=== PATIENT | female | born 1945 | race Caucasian/White ===

== ENCOUNTER 2020-02-24 08:51 | Outpatient (CLI) | payer MEDICARE, OTHER, SELFPAY ==
--- NOTE | ~2020-02-24 | XR_ITS ---
XR chest 2V DATE: 02/24/2020 09:22 INDICATION: Cough TECHNIQUE: PA and lateral views COMPARISON: 12/18/2017 PA and lateral chest FINDINGS: Heart size is at upper limits of normal. There is aortic ectasia and tortuosity. No hilar o r mediastinal enlargement is evident. Bilateral cardiophrenic fat pads. Moderate bilateral hyperinflation. No pulmonary infiltrate or consolidation, pleural effusion or pulm onary vascular congestion or pneumothorax is detected. Diffuse osteopenia. Degenerative changes of the thoracic and lumbar spine, mild scoliosis. There is osteoarthritis at both glenohumeral joints. Surgical clips overlie the medial right lower cervical area. IMPRESSION: Moderate bilateral hyperinflation; no active cardiac pulmonary disease Reviewed, dictated and finalized at location A. IMPRESSION: Moderate bilateral hyperinflation; no active cardiac pulmonary dise ase
== END 2020-02-24 08:52 | disposition home or self-care (01) ==
LOC: ANHIMG 09:05
PROVIDERS: PCP Internal Medicine; Visit Provider Clinical Nurse Specialist
DX: R05 Cough (principal); R91.8 Other nonspecific abnormal finding of lung field
CPT/HCPCS: 71046

== ENCOUNTER 2020-04-13 10:17 | Outpatient (CLI) | payer MEDICARE, OTHER, SELFPAY ==
--- NOTE | ~2020-04-13 | MM_ITS ---
EXAMINATION: MM screening [facility] BI w michele HISTORY: Screening mammogram, history of right breast cancer TECHNIQUE: Craniocaudal and mediolateral oblique 3-D tomosynthesis images were obtained and synthetic 2-D images were generated. CAD analysis was submitted and interpreted. COMPARISON: 03/27/2019, 03/25/2018, 03/20/2017 BREAST PARENCHYMAL COMPOSITION: There are scattered areas of fibroglandular density. FINDINGS: Stable lumpectomy changes are present in the upper outer quadrant of the right breast. Ther e is no evidence of suspicious mass, calcification, or architectural distortion to suggest malignancy in either breast. There has been no suspicious interval change. IMPRESSION: 1. No mammographic evidence of malignancy. 2. Recommend routine screening mammography in one year. BI-RADS Category 2: Benign finding(s). Reviewed, dictated and finalized at location A.
== END 2020-04-13 10:18 | disposition home or self-care (01) ==
PROVIDERS: PCP Internal Medicine; Visit Provider Internal Medicine
DX: Z12.31 Encounter for screening mammogram for malignant neoplasm of breast (principal)
CPT/HCPCS: 77063; 77067

== ENCOUNTER 2020-04-15 13:56 | Outpatient (CLI) | payer MEDICARE, OTHER, SELFPAY ==
--- NOTE | 2020-04-15 15:40 | ECG_ITS ---
Measurements Intervals [place] Rate: 73 P: 33 TX: 171 QRS: 12 QRSD: 94 T: 50 QT: 415 QTc: 460 Interpretive Statements SINUS RHYTHM LOW QRS VOLTAGE IN PRECORDIAL LEADS ANTEROSEPTAL INFARCT, AGE INDETERMINATE BORDERLINE ST ABNORMALITY- HIGH LATERAL LEADS BASELINE ARTIFACT- I, II, III, AVR, AVF, V4 ABNORMAL ECG Electronically Signed On 04-15-2020 18:54:22 CDT by Hima Maldonado D.O.
[2020-04-15 16:09] LABS: Basophils Percent Auto 0.5 % (0.2-1.2); Eosinophils Absolute Auto 0.2 K/mm3 (0-0.3); Hematocrit 37.1 % (37.0-47.0); Hemoglobin 12.4 g/dL (12.0-15.0); Immature Granulocyte Absolute 0.01 K/mm3 (0.00-0.031); Immature Granulocyte Percent A 0.2 % (0-0.5); Lymphocytes Absolute Auto 2.98 K/mm3 (0.9-3.2); Lymphocytes Percent Auto 46.3 % (18.3-44.2); Mean Corpuscular HGB Conc 33.4 g/dl (32-36); Mean Corpuscular Hemoglobin 28.6 pg (26-34); Mean Corpuscular Volume 85.5 fl (80-100); Mean Platelet Volume 9.3 fl (7.4-10.4); Monocytes Absolute Auto 0.4 K/mm3 (0.1-0.6); Monocytes Percent Auto 5.7 % (2.6-8.5); Neutrophils Absolute Auto 2.9 K/mm3 (1.3-6.7); Neutrophils Percent Auto 44.3 % (45.5-73.1); Platelet Count Result 174 k/mm3 (150-375); Red Blood Count 4.34 M/mm3 (4.2-5.4); Red Cell Distribution Width 13.2 % (11.5-14.5); White Blood Count 6.4 K/mm3 (4.5-10.0)
[2020-04-15 16:20] LABS: Albumin Level 4.3 g/dL (3.5-5.1); Estimated Glomerular Filt Rate > 60; Glucose 94 mg/dL (65-105); Hemoglobin A1C 5.3 % (<5.7)
[2020-04-15 16:21] LABS: Urine Cotinine NEGATIVE
== END 2020-04-15 13:57 | disposition home or self-care (01) ==
LOC: ANHSURGERY 13:57
PROVIDERS: PCP Internal Medicine; Visit Provider Orthopaedic Surgery
DX: M16.11 Unilateral primary osteoarthritis, right hip (principal); Z01.812 Encounter for preprocedural laboratory examination; R94.31 Abnormal electrocardiogram [ECG] [EKG]
CPT/HCPCS: 80307; 82040; 82565; 82947; 83036; 85025; 86850; 86900; 86901; 93005

== ENCOUNTER 2020-04-25 01:21 | Outpatient (CLI) | payer MEDICARE, OTHER, SELFPAY ==
[2020-04-25 18:16] LABS: SARS-CoV-2 RNA PCR Negative
== END 2020-04-25 01:22 | disposition home or self-care (01) ==
LOC: ANHCOVIDDT 01:22
PROVIDERS: PCP Internal Medicine; Visit Provider Orthopaedic Surgery
DX: Z01.812 Encounter for preprocedural laboratory examination (principal); Z20.828 Contact with and (suspected) exposure to other viral communicable diseases
CPT/HCPCS: 87635; C9803; U0003

== ENCOUNTER 2020-04-26 09:20 | Outpatient (CLI) | payer MEDICARE, OTHER, SELFPAY ==
--- NOTE | 2020-04-26 | EST_ITS ---
Patient Info Name: Joanne Newman Age: 74 years : 1945 Gender: Female Ht: 69 in Wt: 200 lbs BSA: 2.12 m2 Exam Date: 04/26/2020 10:30 AM Exam Location: [facility] Stress Patient Status: Outpatient Admit Date: 04/26/2020 Staff Ordering Physician: Dwan Omer Attending Provider: Dawn Omer Exercise Technologist: Isabel Pagan RDCS Exam Type: CA stress brittney w NM Study Info Indications Z01.818 - Encounter for other preprocedural examination R94.31 - Abnormal electrocardiogram ECG EKG A regadenoson stress test was performed. Summary 1. 1. Negative lexiscan stress test for ischemic ST changes by ECG criteria. However, at completion of Lexiscan portion of test, patient reports having a cup of coffee this morning. This could cause lexiscan inhibition. 2. 2. Baseline hypertension. 3. 3. Nuclear scan to follow and will be reported separately. Please correlate with it. 4. 4. Patient informed of the above results. Protocol: Lexiscan Stress ECG Details Stage: REST Duration (min): 7 min : 26 sec HR (bpm): 82 SBP (mmHg): 148 DBP (mmHg): 80 Stage: REST Duration (min): 10 min : 52 sec HR (bpm): 84 SBP (mmHg): 148 DBP (mmHg): 80 Stage: STAGE 1 Duration (min): 1 min : 0 sec HR (bpm): 86 SBP (mmHg): 142 DBP (mmHg): 80 Stage: RECOVERY Duration (min): 1 min : 0 sec HR (bpm): 91 SBP (mmHg): 142 DBP (mmHg): 80 Stage: RECOVERY Duration (min): 2 min : 0 sec HR (bpm): 90 SBP (mmHg): 143 DBP (mmHg): 78 Stage: RECOVERY Duration (min): 3 min : 0 sec HR (bpm): 87 SBP (mmHg): 135 DBP (mmHg): 76 Stage: RECOVERY Duration (min): 3 min : 5 sec HR (bpm): 88 SBP (mmHg): 135 DBP (mmHg): 76 Rest HR: 84 bpm Peak HR: 95 bpm Rest Sys BP: 148 mmHg Peak Sys BP: 143 mmHg Max Pred HR: 145 bpm % Max Pred HR: 66 % Target HR: 123 bpm Max RPP: 13,585 bpm*mmHg Termination Reason: Completed protocol Cardiac Symptoms: None Total Time: 1 min : 0 sec Rest Gasca BP: 80 mmHg Peak Gasca BP: 78 mmHg Total Dose: 0.4 mg Resting ECG Sinus rhythm, cannot r/o septal infarct, age indeterminate, borderline ST abnormality in diffuse leads. Stress ECG No ST changes. Arrhythmias None. Report Signatures
--- NOTE | ~2020-04-26 | NM_ITS ---
EXAMINATION: NM brittney stress w perfusion DATE: 04/26/2020 11:35 INDICATION: Abnormal electrocardiogram. TECHNIQUE: Rest images were obtained following intravenous administration of 9.8 mCi Tc99m tetrofosmi n (Myoview). The patient was infused intravenously with Lexiscan (regadenoson). Then, 31.1 mCi Tc99m tetrofosmin (Myoview) was administered intravenously, and stress images were obtained. Data was recon structed into short axis and horizontal and vertical long axis SPECT images. Gated SPECT images were also obtained. COMPARISON: None. FINDINGS: There is no definite reversible or fixed perfusion abnormality to suggest ischemia or infar ction. There is no segmental wall motion abnormality. Left ventricular ejection fraction measures 6 3%. IMPRESSION: 1. No definite ischemia or infarct. The patient had coffee the morning of the procedure, which may davila mper the vasodilator effect of regadenoson potentially yielding false negative results. 2. Normal left ventricular ejection fraction measuring 63%. Reviewed, dictated and finalized at location A. IMPRESSION: 1. No definite ischemia or infarct. The patient had coffee the morning of the p rocedure, which may hamper the vasodilator effect of regadenoson potentially maori elding false negative results. 2. Normal left ventricular ejection fraction measuring 63%.
== END 2020-04-26 09:21 | disposition home or self-care (01) ==
PROVIDERS: PCP Internal Medicine; Visit Provider Clinical Nurse Specialist
DX: R94.31 Abnormal electrocardiogram [ECG] [EKG] (principal)
CPT/HCPCS: 78452; 93017; A9502; J2785

== ENCOUNTER 2020-04-28 15:43 | Observation (INO) | payer MEDICARE, OTHER, SELFPAY ==
[2020-04-15 14:37] VITALS: BMI 30.7
[2020-04-15 14:38] VITALS: BP 124/84; PULSE 75; RESP 18; TEMP 36.8; O2SAT 18
--- NOTE | 2020-04-25 10:38 | PM.IMHP ---
H&P: HPI History of Present Illness Date/Time: 04/25/20 10:38 Chief complaint: OA Right Hip Narrative: Joanne Newman is a 74 year old female Who presents with a chronic ongoing history of right hip and groin pain. This is limiting her daily activities. She can not stand or walk for long periods, she has aching and pain in the groin that radiates into her thigh. Her pain is worse with activity somewhat relieved by rest she does have start-up pain rest pain and night pain however. She notes limitation of motion as well and despite conservative measures including anti-inflammatories and activity modification her symptoms continue. X-rays at this time show advanced primary osteoarthritis in the right hip joint. The patient at this point is discuss further treatment options in detail with Dr. Shaw she would now like to proceed with a right total hip arthroplasty. Review of Systems Review of Systems: All systems reviewed & are unremarkable except as noted in HPI and below PMFSH Past Medical History Medical History Acute hemorrhoid Asthma Breast cancer Cataract Chicken pox Depression Heartburn HTN (hypertension) Hypercholesterolemia Hyperlipemia Liver disease Lumbar radiculopathy Measles Multiple sclerosis Mumps Osteoarthritis Osteoporosis Postmenopausal Rheumatoid arthritis Thyroid disease Tonsillectomy planned 1957 Surgical History Surgical History H/O blepharoplasty 1998 H/O breast biopsy Left 1981, right 1979 H/O hand surgery 1999 H/O lumpectomy H/O thyroidectomy 1982 History of back surgery 05/26/2019 History of bladder surgery 2018 History of facelift 2007 History of knee replacement procedure of left knee 2002, 2012 History of knee replacement procedure of right knee 2009 Hx of cardiac cath Social History Social History Smoking status: Never smoker Alcohol intake: never Substance use: never Spiritual care concerns: No Meds Home Medications and Allergies Home Medications Medication Instructions Recorded Confirmed Type lisinopril 10 mg tablet 10 mg PO DAILY #90 tablet 11/03/19 04/15/20 Rx anastrozole 1 mg tablet 1 mg PO QAM 11/04/19 04/15/20 History cyclosporine 0.05 % eye drops in a 1 drop EACH EYE Q12H 11/04/19 04/15/20 History dropperette docusate sodium 100 mg capsule 100 mg PO DAILY 11/04/19 04/15/20 History fluticasone propionate 50 1 spray NASAL DAILY 11/04/19 04/15/20 History mcg/actuation nasal spray,suspension meloxicam 15 mg tablet 15 mg PO DAILY 11/04/19 04/15/20 History omeprazole 20 mg tablet,delayed 20 mg PO DAILY 11/04/19 04/15/20 History release pilocarpine HCl 5 mg tablet 5 mg PO QID 11/04/19 04/15/20 History triamcinolone acetonide 0.1 % 1 applic TOPICAL BID 11/04/19 04/15/20 History topical ointment venlafaxine 75 mg capsule,extended 75 mg PO DAILY #90 cap 11/19/19 04/15/20 Rx release 24 hr atorvastatin 10 mg tablet 10 mg PO DAILY #90 tablet 12/30/19 04/15/20 Rx abatacept (with maltose) [Orencia 750 mg IV MONTHLY 04/15/20 04/15/20 History (with maltose)] albuterol sulfate [ProAir HFA] 2 puff INHALATION Q4-6H PRN 04/15/20 04/15/20 History fluticasone propion-salmeterol 1 inh INHALATION BID 04/15/20 04/15/20 History [Advair Diskus] levothyroxine [Levoxyl] 112 mcg PO QAM 04/15/20 04/15/20 History mirabegron [Myrbetriq] 25 mg PO DAILY 04/15/20 04/15/20 History oxybutynin chloride 10 mg PO DAILY 04/15/20 04/15/20 History cetirizine 10 mg tablet 10 mg PO DAILY PRN #90 tablet 04/18/20 Rx Allergies Allergy/AdvReac Type Severity Reaction Status Date / Time povidone-iodine Allergy Mild SKIN RASH Verified 04/15/20 14:14 Exam Narrative: Exam Narrative: The patient is a well-developed well-nourished female no acute distress. She is alert and oriented x3. Normal mo
--- NOTE | 2020-04-26 13:59 | WPDANESEPPF ---
Anes - Initial Pre Proc Eval Procedure: Operation Date: 04/27/20 07:30 Proposed Procedures p Right Total Hip Arthroplasty - Blake Shaw MD Date/Time: 04/26/20 13:59 Surgeon: Blake Shaw MD Pre Op Diagnosis: OA Right Hip Patient Data Age: 74 Gender: F Height: 5 ft 9 in Weight: 94.4 kg Last Vital Signs Temp 98.2 F 04/15/20 14:38 Pulse 75 04/15/20 14:38 Resp 18 04/15/20 14:38 BP 124/84 04/15/20 14:38 Pulse Ox 18 L 04/15/20 14:38 Allergies Allergy/AdvReac Type Severity Reaction Status Date / Time povidone-iodine Allergy Mild SKIN RASH Verified 04/15/20 14:14 Home Medications Medication Instructions Recorded Confirmed Type lisinopril 10 mg tablet 10 mg PO DAILY #90 tablet 11/03/19 04/15/20 Rx anastrozole 1 mg tablet 1 mg PO QAM 11/04/19 04/15/20 History cyclosporine 0.05 % eye drops in a 1 drop EACH EYE Q12H 11/04/19 04/15/20 History dropperette docusate sodium 100 mg capsule 100 mg PO DAILY 11/04/19 04/15/20 History fluticasone propionate 50 1 spray NASAL DAILY 11/04/19 04/15/20 History mcg/actuation nasal spray,suspension meloxicam 15 mg tablet 15 mg PO DAILY 11/04/19 04/15/20 History omeprazole 20 mg tablet,delayed 20 mg PO DAILY 11/04/19 04/15/20 History release pilocarpine HCl 5 mg tablet 5 mg PO QID 11/04/19 04/15/20 History triamcinolone acetonide 0.1 % 1 applic TOPICAL BID 11/04/19 04/15/20 History topical ointment venlafaxine 75 mg capsule,extended 75 mg PO DAILY #90 cap 11/19/19 04/15/20 Rx release 24 hr atorvastatin 10 mg tablet 10 mg PO DAILY #90 tablet 12/30/19 04/15/20 Rx abatacept (with maltose) [Orencia 750 mg IV MONTHLY 04/15/20 04/15/20 History (with maltose)] albuterol sulfate [ProAir HFA] 2 puff INHALATION Q4-6H PRN 04/15/20 04/15/20 History fluticasone propion-salmeterol 1 inh INHALATION BID 04/15/20 04/15/20 History [Advair Diskus] levothyroxine [Levoxyl] 112 mcg PO QAM 04/15/20 04/15/20 History mirabegron [Myrbetriq] 25 mg PO DAILY 04/15/20 04/15/20 History oxybutynin chloride 10 mg PO DAILY 04/15/20 04/15/20 History cetirizine 10 mg tablet 10 mg PO DAILY PRN #90 tablet 04/18/20 Rx Patient hx anesthesia problems: none Family hx anesthesia problems: none PMFSH Past Medical History Medical History Acute hemorrhoid Asthma Breast cancer Cataract Chicken pox Depression Heartburn HTN (hypertension) Hypercholesterolemia Hyperlipemia Liver disease Lumbar radiculopathy Measles Multiple sclerosis Mumps Osteoarthritis Osteoporosis Postmenopausal Rheumatoid arthritis Thyroid disease Tonsillectomy planned 1957 Surgical History Surgical History H/O blepharoplasty 1998 H/O breast biopsy Left 1981, right 1979 H/O hand surgery 1999 H/O lumpectomy H/O thyroidectomy 1982 History of back surgery 05/26/2019 History of bladder surgery 2018 History of facelift 2007 History of knee replacement procedure of left knee 2002, 2012 History of knee replacement procedure of right knee 2009 Hx of cardiac cath Social History Social History Smoking status: Never smoker Alcohol intake: never Alcohol use details: SOCIALLY MANY YEARS AGO Substance use: never Living arrangements: with family Spiritual care concerns: No Anes - Eval Final PreProcedure Day of Procedure 04/26/20 13:59 Patient weight: overweight Heart: regular rate and rhythm Lungs: clear to auscultation Airway: Mallampati scale class III Neurological: alert and oriented Last oral intake: >/= 8 hours ASA classification: III Emergent: no Anesthetic plan: proceed Anesthesia type and monitoring: general ETT and standard monitoring Informed Consent: The patient's anesthetic plan and its attendant risks and benefits were discussed with the patient/family/POA. Questions were solicited
[2020-04-27] VITALS (13 sets, daily range): BP systolic 93–151; BP diastolic 52–82; PULSE 64–90; RESP 12–21; TEMP 36–36.8; O2SAT 20–100
[2020-04-27] MEDS: ACETAMINOPHEN 500 MG TABLET 1000 MG PO (06:34)
[2020-04-27] MEDS: LACTATED RINGERS 1,000 ML 30 ML IV CONT ×2 (06:44→09:47)
[2020-04-27] MEDS: KETOROLAC 15 MG/ML VIAL (*BKC) IV PUSH (06:45)
[2020-04-27] MEDS: TRANEXAMIC ACID 1,000MG/ISO100 1,000 MG/100 ML BAG 200 MG IVPB (06:52)
--- NOTE | 2020-04-27 07:08 | WPDHPUPDATE1 ---
History and Physical Update Update Date/Time: 04/27/20 07:08 History and Physical has been reviewed, including an updated exam of the patient. There are NO changes in the patient's condition. Risks, benefits, and alternatives have been discussed and questions answered. Patient agrees to proceed with procedure.
[2020-04-27] MEDS: ceFAZolin 2 GM/D5W 50 ML 2 GM/50 ML BAG IVPB (07:30)
[2020-04-27] MEDS: ceFAZolin SODIUM 1 GM VIAL IV PUSH (09:03)
[2020-04-27] MEDS: TRANEXAMIC ACID 1,000 MG/10 ML AMPUL 1000 MG IV PUSH (09:05)
--- NOTE | 2020-04-27 09:11 | PM.PROC ---
Procedure Note - Detailed Date of procedure: 04/27/20 Pre-op diagnosis: OA Right Hip Post-op diagnosis: same Procedure performed: [Right] total hip arthroplasty Description of procedure: Patient was brought to the operating room and anesthetic was administered. The patient was placed with the [side] up and steriley prepped and draped in the usual manner. Longitudinal incision was done, dissection carried down to the fascia. A Hardinge type approach was used and the femoral head was dislocated anteriorly. Femoral head was removed a finger breath above the lesser trochanter. The acetabulum was serially reamed to accept a [52] component. This was impacted into place and secured with 2 25mm screws. A high wall liner was placed. The femur was reamed and broached to accept a [12] component which was impacted into place. A plus [0] ball and neck were placed and the hip was put through full range of motion. The hip was noted to be stable. The wounds were then closed in a layer fashion using #5 ethibond, 2 vicryl, 2-0 vicryl and radhika. Patient left the operating room in satisfactory condition. Anesthesia: GETA Surgeon: Blake Shaw MD Packager And Strapper: Juan Francisco Cevallos Estimated blood loss (mL): 600 Drains: No Packing: No Pathology: none sent Complications: No immediate complications Condition: stable Disposition: PACU Findings: Arthritis
[2020-04-27 10:06] LABS: Hematocrit 32.7 % (37.0-47.0); Hemoglobin 10.8 g/dL (12.0-15.0)
--- NOTE | 2020-04-27 10:37 | SUR.PHASEI ---
Dr. Elena aware of BP and said to continue monitoring at this time.
--- NOTE | 2020-04-27 12:51 | PM.IMCN ---
Assessment and Plan Assessment and plan (1) History of total right hip arthroplasty: Code(s): Z96.641 - Presence of right artificial hip joint Status: Acute Assessment and Plan: I discussed rehab and the patient stated that she has paperwork for exercises and she believe she is going to do it all on her own med at home. Pain management and DVT prophylaxis per Dr. Shaw. The patient has MORRIS hose and SCDs on. Her dressing to the right hip is dry and intact without any drainage. She has a foam dressing. She is not having any discomfort at this time. (2) Hypothyroidism: Code(s): E03.9 - Hypothyroidism, unspecified Status: Chronic Assessment and Plan: Continue with levothyroxine. (3) HTN (hypertension): Code(s): I10 - Essential (primary) hypertension Status: Chronic Assessment and Plan: Her blood pressure is on the soft side today. Her lisinopril was resumed but please Marcela evaluate tomorrow to see if we can continue with that. (4) Hypercholesterolemia: Code(s): E78.00 - Pure hypercholesterolemia, unspecified Status: Chronic Assessment and Plan: Continue with atorvastatin (5) COPD (chronic obstructive pulmonary disease): Code(s): J44.9 - Chronic obstructive pulmonary disease, unspecified Status: Acute Assessment and Plan: Continue with Advair and albuterol (6) Depression: Code(s): F32.9 - Major depressive disorder, single episode, unspecified Status: Chronic Assessment and Plan: continue with venlafaxine Additional Plan history of breast cancer. The patient had radiation chemotherapy in the past and is now on anastrozole which is currently on hold by orthopedic physician. HPI Data of Consult Consult date: 04/27/20 Requesting Physician: Blake Shaw MD Primary Care Provider: Yonatan Payne DO Consult Narrative Narrative: Joanne Newman is a 74 year old female Houses history of severe osteoarthritis as well as rheumatoid arthritis and osteoporosis. The patient has been dealing with chronic ongoing history of right hip pain and right groin pain she has performed some limited activities as well as exercises and she has tried nonsteroidal anti-inflammatories. She has tried all conservative measures to help control her pain. Sometimes rest does does help but then she has pain at night it sometimes. Despite her conservative measures the patient continued to have intense pain. And limited activity. The patient has had both of her knees replaced in the past. And is not having any problems with her knees at this time. Patient had x-rays performed that was read as advanced primary osteoarthritis in the right hip joint. The patient had preop screening including a Lexiscan which are negative. Patient underwent a right total hip arthroplasty today per Dr. Shaw. According to the operative note the patient lost approximately 600 mL of blood and there was no immediate complications. The date of consult is 04/27/2020. Review of Systems Review of Systems: All systems reviewed & are unremarkable except as noted in HPI and below Constitutional: Constitutional: Reports as per HPI and Reports no additional constitutional complaints Eyes: Eyes: Reports as per HPI and Reports no additional eye complaints ENT: Reports system reviewed and no additional complaints, except as documented and Reports Normal hearing present Cardiovascular: Cardiovascular: Reports no additional cardiovascular complaints Respiratory: Respiratory: Reports no additional respiratory complaints and Reports no additional respiratory complaints Gastrointestinal: Gastrointestinal: Reports as per HPI and Reports no additional gastrointestinal complaints Musculoskeletal: Musculoskeletal: Reports no additional musculoskeletal complaints Integumentary/Breasts: Skin/Breast: Reports system reviewed and no additional complaints, except as
[2020-04-27] MEDS: DOCUSATE SODIUM 100 MG CAPSULE PO ×2 (15:12→17:54)
[2020-04-27] MEDS: RIVAROXABAN 10 MG TABLET PO (17:54)
[2020-04-27] MEDS: cycloSPORINE 0.4 ML OPHTH SOLUTION 1 DROP EACH EYE (20:12)
[2020-04-27] MEDS: FLUTICASONE/SALMETEROL 115-21 MCG INHALER 1 PUFF 2 PUFF INHALATION (20:28)
[2020-04-27] MEDS: ONDANSETRON INJ 4 MG/2 ML VIAL IV PUSH (20:40)
[2020-04-27] MEDS: SODIUM CHLORIDE 0.9% IV 500 ML IV CONT (20:40)
[2020-04-27] MEDS: SODIUM CHLORIDE 0.9% IV 1,000 ML 125 ML IV CONT (22:01)
[2020-04-27] MEDS: HYDROcodone/acetaminophen (*CRX) 7.5-325 MG TABLET 2 TAB PO (22:01)
[2020-04-28] VITALS (9 sets, daily range): BP systolic 114–136; BP diastolic 54–78; PULSE 71–94; RESP 16–21; TEMP 36.2–37; O2SAT 93–100
--- NOTE | ~2020-04-28 | XR_ITS ---
EXAMINATION: XR surgery orthopedic DATE: 04/27/2020 09:15 INDICATION: Intraoperative evaluation during right total hip arthroplasty TECHNIQUE: Frontal view of the right hip was obtained. COMPARISON: None. FINDINGS: Intraoperative image during a right total hip arthroplasty demonstrate placement of an acetabular com ponent affixed with at least a single screw which appears in near anatomic alignment on the single im age provided. Alignment of the arthroplasty appears near-anatomic. Portions of the pelvis are either obscured by a bolster and the iliac crests extending beyond the cephalad margin of the [id number]. No fractures in the visualized bones. IMPRESSION: 1. Expected appearance during right total hip arthroplasty. Reviewed, dictated and finalized at location B.
[2020-04-28] MEDS: SODIUM CHLORIDE 0.9% IV 1,000 ML 125 ML IV CONT (06:37)
[2020-04-28] MEDS: LEVOTHYROXINE SODIUM 112 MCG TABLET PO (06:38)
[2020-04-28 06:40] LABS: Basophils Percent Auto 0.2 % (0.2-1.2); Eosinophils Percent Auto 0.2 % (0-4.4); Hematocrit 27.3 % (37.0-47.0); Immature Granulocyte Absolute 0.06 K/mm3 (0.00-0.031); Immature Granulocyte Percent A 0.5 % (0-0.5); Lymphocytes Absolute Auto 2.56 K/mm3 (0.9-3.2); Lymphocytes Percent Auto 19.6 % (18.3-44.2); Mean Corpuscular Hemoglobin 28.3 pg (26-34); Mean Corpuscular Volume 85.8 fl (80-100); Mean Platelet Volume 9.6 fl (7.4-10.4); Monocytes Absolute Auto 0.7 K/mm3 (0.1-0.6); Monocytes Percent Auto 5.7 % (2.6-8.5); Neutrophils Absolute Auto 9.6 K/mm3 (1.3-6.7); Neutrophils Percent Auto 73.8 % (45.5-73.1); Platelet Count Result 141 k/mm3 (150-375); Red Blood Count 3.18 M/mm3 (4.2-5.4); Red Cell Distribution Width 13.5 % (11.5-14.5)
[2020-04-28 07:01] LABS: Anion Gap 8 mmol/L (8-16); Blood Urea Nitrogen 26 mg/dL (7-17); Calcium 8.2 mg/dL (8.4-10.2); Carbon Dioxide 26 mmol/L (22-30); Chloride 105 mmol/L (98-107); Estimated CRCL calculation 64 ml/min; Estimated Glomerular Filt Rate > 60; Glucose 135 mg/dL (65-105); Potassium 3.9 mmol/L (3.4-5.0); Sodium 139 mmol/L (137-145)
[2020-04-28] MEDS: FLUTICASONE/SALMETEROL 115-21 MCG INHALER 1 PUFF 2 PUFF INHALATION ×2 (07:59→20:28)
[2020-04-28] MEDS: ATORVASTATIN 10 MG TABLET PO (09:52)
[2020-04-28] MEDS: MIRABEGRON 25 MG ER TABLET PO (09:52)
[2020-04-28] MEDS: VENLAFAXINE HCL XR 75 MG CAP.ER.24H PO (09:52)
[2020-04-28] MEDS: DOCUSATE SODIUM 100 MG CAPSULE PO ×2 (09:52→17:01)
[2020-04-28] MEDS: lisinopriL 10 MG TABLET PO (09:53)
[2020-04-28] MEDS: cycloSPORINE 0.4 ML OPHTH SOLUTION 1 DROP EACH EYE ×2 (09:53→21:03)
[2020-04-28] MEDS: FLUTICASONE PROPIONATE 0.05% NA SPR 16 GM BTL (*BKC) 1 SPRAY NASAL (09:53)
--- NOTE | 2020-04-28 10:12 | PCOTNOTE ---
On 04/28/20, the student, Alicia Rojas, provided care and completed [facility] documentation on this patient. I have reviewed the student's documentation and agree with the findings.
--- NOTE | 2020-04-28 11:22 | PM.IMPN ---
Progress Note: A&P Assessment and Plan (1) History of total right hip arthroplasty: Code(s): Z96.641 - Presence of right artificial hip joint Status: Acute Assessment and Plan: -----patient plans to continue physical therapy at home and would like home health to do so. I have asked her to talk to Ortho and care coordination about this. Her pain is well controlled we will continue with ortho is recommendations on that. It looks like she is on Xarelto as DVT prophylaxis per ortho. Medically stable for discharge (2) Hypothyroidism: Code(s): E03.9 - Hypothyroidism, unspecified Status: Chronic Assessment and Plan: -----continue levothyroxine (3) HTN (hypertension): Code(s): I10 - Essential (primary) hypertension Status: Chronic Assessment and Plan: -----last blood pressure 121/78. Continue lisinopril (4) Hypercholesterolemia: Code(s): E78.00 - Pure hypercholesterolemia, unspecified Status: Chronic Assessment and Plan: -----Continue with atorvastatin (5) COPD (chronic obstructive pulmonary disease): Code(s): J44.9 - Chronic obstructive pulmonary disease, unspecified Status: Acute Assessment and Plan: -----Continue with Advair and albuterol (6) Depression: Code(s): F32.9 - Major depressive disorder, single episode, unspecified Status: Chronic Assessment and Plan: ----- continue with venlafaxine Additional Plan history of breast cancer. The patient had radiation chemotherapy in the past and is now on anastrozole which is currently on hold by orthopedic physician. Time Spent With Patient Time with patient: 25 - 35 minutes Subjective Date/time seen: 04/28/20 11:22 Interval history: Pt is a 74-year-old female here for right hip arthroplasty. Patient was seen today and is doing well. She is having some pain at the hip but was able to get up and do therapy today. She is eating and drinking well and has had a BM. Pt denies nausea, vomiting, fevers, chills, constipation, diarrhea, chest pain, cough, sob, or abdominal pain. Review of Systems Review of Systems: All systems reviewed & are unremarkable except as noted in HPI and below Exam Narrative: Exam Narrative: General: Well developed well nourished patient in NAD HEENT: normocephalic Neck: supple Neuro: Alert and oriented x4 CV:RRR with murmur 2/6 systolic in the right intercostal space Resp:CTA Abd: Soft, non distended. No pain to palpation. Positive bowel sounds Extremities: Right hip incision covered with bandages and not removed due to hemostasis. No obvious signs of bleeding or discharge. Objective Data Vital Signs Vital Signs: Vital Signs - 24 hr 04/27/20 11:40 04/27/20 12:40 04/27/20 16:40 Temperature 97.2 F L 97.2 F L 97.8 F Pulse Rate 75 70 87 Respiratory Rate 16 16 16 Blood Pressure 151/77 H 117/57 L 93/70 L Pulse Oximetry 97 98 98 04/27/20 21:58 04/27/20 22:00 04/27/20 22:43 Temperature 98.3 F 97.1 F L Pulse Rate 90 80 73 Respiratory Rate 20 21 H Blood Pressure 133/65 144/69 H Pulse Oximetry 92 100 95 04/28/20 01:58 04/28/20 02:00 04/28/20 06:00 Temperature 97.4 F L 97.2 F L Pulse Rate 71 88 90 Respiratory Rate 21 H 20 Blood Pressure 122/57 L 114/60 Pulse Oximetry 97 100 99 04/28/20 08:01 04/28/20 10:00 Temperature 97.4 F L Pulse Rate 92 88 Respiratory Rate 16 20 Blood Pressure 121/78 Pulse Oximetry 100 Intake/Output Intake/Output: Intake & Output 04/25/20 04/26/20 04/27/20 04/28/20 23:59 23:59 23:59 23:59 Intake Total 1680 1460 Output Total 150 Balance 1680 1310 Meds/Results Medications: Active Medications Generic Name Dose Route Start Last Admin Trade Name Freq PRN Reason Stop Dose Admin Hydrocodone Bitart/Acetaminophen 1 tab 04/27/20 10:49 Hydrocodone/Acetaminophen (*Crx) 5-325 Mg Tablet PO Q3H PRN Pain Rated
[2020-04-28] MEDS: HYDROcodone/acetaminophen (*CRX) 5-325 MG TABLET 1 TAB PO (12:31)
--- NOTE | 2020-04-28 14:58 | PM.PNORT ---
Progress Note: A&P Additional Plan Patient is postop day 1 status post right total hip arthroplasty. Patient is having a little trouble getting going in physical therapy did not make much progress today. Pain medications were adjusted, the patient is encouraged to push herself in physical therapy try to follow instructions per the physical therapist for ambulation. We will try again tomorrow with physical therapy keep her overnight for further observation. A rehab consult will be placed in case she does need further physical therapy and care for her total hip. The patient voiced understanding agrees with above plan. If she is doing very well tomorrow and making good strides in physical therapy we will send her home, will re-evaluate tomorrow. Subjective Subjective Date/Time Seen: 04/28/20 14:58 Patient is status post right total hip arthroplasty postop day 1. The patient is having quite a bit of postop pain particularly when she tries to participate in physical therapy, this is slowing her down also having trouble cooperating and a little resistant to being up ambulating in therapy due to anxiety and discomfort. This was reported by the physical therapist. I saw the patient at bedside today she seems more calm now but again frustrated and not sure she can do issues after doing therapy due to her pain. At rest she seems to be comfortable. She states she has no other complaints now otherwise feels well. Review of Systems Review of Systems: All systems reviewed & are unremarkable except as noted in HPI and below Exam Narrative: Exam Narrative: The patient is alert and oriented x3. Normal mood and affect not anxious at this time. Answers questions appropriately. Vital signs are stable she is afebrile neurovascularly the patient is intact, wound is clean and dry, calves are benign. No significant tenderness or swelling in the mid to distal thigh. Objective Data Vital Signs Vital Signs: Vital Signs - 24 hr 04/27/20 16:40 04/27/20 21:58 04/27/20 22:00 Temperature 36.6 C 36.8 C 36.2 C L Pulse Rate 87 90 80 Respiratory Rate 16 20 21 H Blood Pressure 93/70 L 133/65 144/69 H Pulse Oximetry 98 92 100 04/27/20 22:43 04/28/20 01:58 04/28/20 02:00 Temperature 36.3 C L Pulse Rate 73 71 88 Respiratory Rate 21 H Blood Pressure 122/57 L Pulse Oximetry 95 97 100 04/28/20 06:00 04/28/20 08:01 04/28/20 10:00 Temperature 36.2 C L 36.3 C L Pulse Rate 90 92 88 Respiratory Rate 20 16 20 Blood Pressure 114/60 121/78 Pulse Oximetry 99 100 04/28/20 14:00 Temperature 36.8 C Pulse Rate 89 Respiratory Rate 18 Blood Pressure 114/54 L Pulse Oximetry 93 Intake/Output Intake/Output: Intake & Output 04/25/20 04/26/20 04/27/20 04/28/20 23:59 23:59 23:59 23:59 Intake Total 1680 1460 Output Total 150 Balance 1680 1310 Meds/Results Medications: Active Medications Generic Name Dose Route Start Last Admin Trade Name Freq PRN Reason Stop Dose Admin Hydrocodone Bitart/Acetaminophen 1 tab 04/27/20 10:49 04/28/20 12:31 Hydrocodone/Acetaminophen (*Crx) 5-325 Mg Tablet PO 1 tab Q3H PRN Administration Pain Rated 4-6 Hydrocodone Bitart/Acetaminophen 1 tab 04/28/20 14:01 Hydrocodone/Acetaminophen (*Crx) 7.5-325 Mg Tablet PO Q6H PRN Pain Rated 7-10 Albuterol 2 puff 04/27/20 13:08 Albuterol Sulfate (*Sp) Aerosol 1 Puff INHALATION Q4-6H PRN Dyspnea Alprazolam 0.25 mg 04/28/20 11:53 Alprazolam (*Crx) 0.25 Mg Tablet PO TID PRN Anxiety Atorvastatin Calcium 10 mg 04/28/20 09:00 04/28/20 09:52 Atorvastatin 10 Mg Tablet PO 10 mg DAILY ROCKY Administration Cyclosporine 1 drop 04/27/20 21:00 04/28/20 09:53 Cyclosporine 0.4 Ml Ophth Solution EACH EYE 1 drop Q12HR ROCKY Administration Docusate Sodium 100 mg 04/27/20 10:49 04/28/20 09:52 Docusate Sodium 100 Mg Capsule PO 100 mg BID ROCKY Administration Fluticasone Propionate
[2020-04-28] MEDS: ALPRAZolam (*CRX) 0.25 MG TABLET PO (17:01)
[2020-04-28] MEDS: RIVAROXABAN 10 MG TABLET PO (17:01)
--- NOTE | 2020-04-28 19:14 | PHAR ---
HOME MED VERIFIED PILOCARPINE 5MG TABLETS 1 TABLET QID
[2020-04-29 02:00] VITALS: BP 148/77; PULSE 93; RESP 20; TEMP 37.2; O2SAT 98
[2020-04-29 06:00] VITALS: BP 153/74; PULSE 93; RESP 20; TEMP 36.8; O2SAT 98
[2020-04-29] MEDS: LEVOTHYROXINE SODIUM 112 MCG TABLET PO (06:20)
[2020-04-29] MEDS: FLUTICASONE PROPIONATE 0.05% NA SPR 16 GM BTL (*BKC) 1 SPRAY NASAL (08:45)
[2020-04-29] MEDS: lisinopriL 10 MG TABLET PO (08:46)
[2020-04-29] MEDS: VENLAFAXINE HCL XR 75 MG CAP.ER.24H PO (08:46)
[2020-04-29] MEDS: DOCUSATE SODIUM 100 MG CAPSULE PO (08:46)
[2020-04-29] MEDS: MIRABEGRON 25 MG ER TABLET PO (08:46)
[2020-04-29] MEDS: ATORVASTATIN 10 MG TABLET PO (08:46)
[2020-04-29] MEDS: cycloSPORINE 0.4 ML OPHTH SOLUTION 1 DROP EACH EYE (08:47)
[2020-04-29] MEDS: HYDROcodone/acetaminophen (*CRX) 5-325 MG TABLET 1 TAB PO ×2 (08:48→15:26)
[2020-04-29] MEDS: FLUTICASONE/SALMETEROL 115-21 MCG INHALER 1 PUFF 2 PUFF INHALATION (09:44)
[2020-04-29 09:45] VITALS: O2SAT 98
[2020-04-29 10:00] VITALS: BP 147/62; PULSE 90; RESP 16; TEMP 37; O2SAT 100
--- NOTE | 2020-04-29 11:32 | PM.PNORT ---
Progress Note: A&P Additional Plan Patient is postop day 2 status post right total hip arthroplasty. Patient will be discharged today to the half-way for further care. The patient voiced understanding agrees above plan she will follow up in 2 weeks for postop recheck she is instructed call immediately, See discharge orders. Subjective Subjective Date/Time Seen: 04/29/20 11:32 Patient is postop day 2 status post right total hip arthroplasty. She has been having some pain trouble following commands and therapy going very slowly. She is otherwise doing well without other complaints. Pain appears to be well controlled at rest. She is now deemed stable for discharge to half-way for further care. Review of Systems Review of Systems: All systems reviewed & are unremarkable except as noted in HPI and below Exam Narrative: Exam Narrative: Patient is a well-developed well-nourished female no acute distress pain is well controlled at rest. Vital signs are stable she is afebrile. Neurovascular the patient is intact. Wound dressing is clean and dry. Calves are benign.No significant swelling in the thigh is noted. Patient is going very slowly with physical therapy due to pain control issues while she is up ambulating and also trouble with following commands, the patient has been somewhat anxious in therapy but in bed right now she appears in no acute distress otherwise pleasant. Objective Data Vital Signs Vital Signs: Vital Signs - 24 hr 04/28/20 14:00 04/28/20 18:00 04/28/20 20:00 Temperature 36.8 C 36.6 C Pulse Rate 89 80 94 Respiratory Rate 18 18 18 Blood Pressure 114/54 L 125/63 Pulse Oximetry 93 100 04/28/20 22:00 04/29/20 02:00 04/29/20 06:00 Temperature 37.0 C 37.2 C 36.8 C Pulse Rate 90 93 93 Respiratory Rate 20 20 20 Blood Pressure 136/59 L 148/77 H 153/74 H Pulse Oximetry 99 98 98 04/29/20 09:45 04/29/20 10:00 Temperature 37.0 C Pulse Rate 90 Respiratory Rate 16 Blood Pressure 147/62 H Pulse Oximetry 98 100 Intake/Output Intake/Output: Intake & Output 04/26/20 04/27/20 04/28/20 04/29/20 23:59 23:59 23:59 23:59 Intake Total 1680 1780 640 Output Total 150 Balance 1680 1630 640 Meds/Results Medications: Active Medications Generic Name Dose Route Start Last Admin Trade Name Freq PRN Reason Stop Dose Admin Hydrocodone Bitart/Acetaminophen 1 tab 04/27/20 10:49 04/29/20 08:48 Hydrocodone/Acetaminophen (*Crx) 5-325 Mg Tablet PO 1 tab Q3H PRN Administration Pain Rated 4-6 Hydrocodone Bitart/Acetaminophen 1 tab 04/29/20 08:07 Hydrocodone/Acetaminophen (*Crx) 7.5-325 Mg Tablet PO Q6H PRN Pain Rated 7-10 Albuterol 2 puff 04/27/20 13:08 Albuterol Sulfate (*Sp) Aerosol 1 Puff INHALATION Q4-6H PRN Dyspnea Alprazolam 0.25 mg 04/28/20 11:53 04/28/20 17:01 Alprazolam (*Crx) 0.25 Mg Tablet PO 0.25 mg TID PRN Administration Anxiety Atorvastatin Calcium 10 mg 04/28/20 09:00 04/29/20 08:46 Atorvastatin 10 Mg Tablet PO 10 mg DAILY ROCKY Administration Cyclosporine 1 drop 04/27/20 21:00 04/29/20 08:47 Cyclosporine 0.4 Ml Ophth Solution EACH EYE 1 drop Q12HR ROCKY Administration Docusate Sodium 100 mg 04/27/20 10:49 04/29/20 08:46 Docusate Sodium 100 Mg Capsule PO 100 mg BID ROCKY Administration Fluticasone Propionate 1 spray 04/28/20 09:00 04/29/20 08:45 Fluticasone Propionate 0.05% Na Spr 16 Gm Btl (*Bkc) NASAL 1 spray DAILY ROCKY Administration Levothyroxine Sodium 112 mcg 04/28/20 06:30 04/29/20 06:20 Levothyroxine Sodium 112 Mcg Tablet PO 112 mcg DAILY@0630 ROCKY Administration Lisinopril 10 mg 04/28/20 09:00 04/29/20 08:46 Lisinopril 10 Mg Tablet PO 10 mg DAILY ROCKY Administration Loratadine 10 mg 04/27/20 13:17 Loratadine 10 Mg Tablet PO DAILY PRN allergy symptoms Magnesium Hydroxide 30 ml 04/27/20 10:49 Magnesium Hydroxide Susp 30
--- NOTE | 2020-04-29 11:54 | PM.DS ---
DS: Admitting Diagnosis Admitting Diagnosis Admitting Diagnosis: Admitting diagnosis : severe OA Right Hip discharge diagnosis severe OA right hip status post total hip arthroplasty. DS: Summary Time Spent with Patient Time attestation: Total time spent providing and/or coordinating discharge services: Exam Narrative: Exam Narrative: Patient is well-developed well-nourished female no acute distress postop day 2. She was having some pain control issues was going slowly in therapy was a bit anxious at times during therapy but at rest pain is fairly well controlled and she is otherwise stable without distress. Vital signs are stable. She is afebrile. Neurovascular she is intact. Wound is clean and dry. She has no significant swelling in the thigh. Calves are benign. DS: Data Data Completed and Pending Labs on day of discharge: Labs from last 24 hours 04/29/20 05:10 SARS-CoV-2 RNA (RT-PCR) Pending Discharge Plan Discharge Attending physician on discharge: Blake Shaw Consulting providers: Joselyn Camara Discharging Clinician: Juan Francisco Cevallos Anticipated Discharge Date/Time: 04/29/20 14:38 Patient Disposition: SNF Activity: no shower and follow weight bearing status Diet: as tolerated and regular Wound Care Instructions: keep dressing dry and change dressing daily Discharge Instructions: -You have been prescribed narcotic pain medication. This pain medication can make you constipated. Utilize [id number] medications to relieve your constipation symptoms. Take only as directed as these medications can be addictive. Do not drive on these medications. -worrisome signs and symptoms to come to the emergency room for: Chest pain, shortness of breath, progressive significant weakness, or any other worrisome symptom patient is discharged to half-way today general diet partial to toe-touch weight-bearing right lower extremity with a walker at all times. She will have outpatient physical therapy at the half-way with ambulation for total hip protocol, follow total hip instructions and precautions. Patient is in stable condition. Patient will follow up at 2 weeks postop for staple removal and wound recheck unless she is still admitted in the half-way that she can have her radhika removed there. The half-way was instructed to call us if this is the case. Patient will continue Xarelto 10 mg daily for a total postop course of 3 weeks, when this is completed then she will start aspirin 325 mg b.i.d. times 1 month. Patient will resume her home medications as previously prescribed. Patient will also be discharged with [place] 5 mg/ 325 mg p.o. Q 3 hours p.r.n. pain. The patient was instructed to call the office immediately at [phone] for any problems questions or concerns, the half-way is also instructed to call us if there is any problems or questions. Patient voiced understanding agrees above plan. Patient Instructions: Rivaroxaban (By mouth), Pain Management (DC), Joint Replacement Surgery (GEN), Total Hip Replacement (DC) Stand Alone Forms: General Discharge Information Follow-up/Referrals: Blake Shaw MD [Physician] - ( Follow-up [address] Shaw for staple removal and wound recheck, call [phone] for any problems difficulties or questions.) Discharge Medications: New hydrocodone-acetaminophen 5-325 mg Tablet 1 tab PO Q3H PRN (Reason: Pain Rated 4-6) Qty: 40 RF: 0 Xarelto 10 mg Tablet 10 mg PO DAILY@1700 Qty: 20 RF: 0 Continued anastrozole 1 mg tablet 1 mg PO QAM RF: 0 pilocarpine HCl 5 mg tablet 5 mg PO QID RF: 0 fluticasone propionate 50 mcg/actuation spray,suspension 1 spray NASAL DAILY RF: 0 Restasis 0.05 % dropperette 1 drop EACH EYE Q12H RF: 0 omeprazole 20 mg tablet,delayed release (DR/EC) 20 mg PO DAILY RF: 0 docusate sodium 100 mg capsule 100 mg PO DAILY RF: 0 tria
[2020-04-29 14:00] VITALS: BP 119/54; PULSE 84; RESP 16; TEMP 36.9; O2SAT 98
[2020-04-29 14:12] LABS: SARS-CoV-2 RNA PCR Negative
== END 2020-04-29 16:30 ==
LOC: ANHSURGERY 15:46 → ANH2MED 15:46
PROVIDERS: Nurse Practitioner; Admitting Provider Orthopaedic Surgery; PCP Internal Medicine; Visit Provider Orthopaedic Surgery
PROC: (CPT 27130; principal; 2020-04-27 07:30)
DX: M16.11 Unilateral primary osteoarthritis, right hip (principal); I10 Essential (primary) hypertension; E78.5 Hyperlipidemia, unspecified; M06.9 Rheumatoid arthritis, unspecified; M81.0 Age-related osteoporosis without current pathological fracture; J44.9 Chronic obstructive pulmonary disease, unspecified; E78.00 Pure hypercholesterolemia, unspecified; F32.9 Major depressive disorder, single episode, unspecified; G35 Multiple sclerosis; E03.9 Hypothyroidism, unspecified; Z85.3 Personal history of malignant neoplasm of breast; Z79.811 Long term (current) use of aromatase inhibitors; Z92.3 Personal history of irradiation; Z92.21 Personal history of antineoplastic chemotherapy; Z20.828 Contact with and (suspected) exposure to other viral communicable diseases
CPT/HCPCS: 27130; 36415; 80048; 85014; 85018; 85025; 87635; 94640; 97110; 97161; 97165; 97530; A9270; C1776; C9803; G0378; J0171; J0330; J0690; J1100; J1885; J2250; J2270; J2370; J2405; J2704; J2710; J2795; J3010; J3370; J7030; J7040; J7120; U0003

== ENCOUNTER 2020-10-14 09:43 | Outpatient (CLI) | payer MEDICARE, OTHER, SELFPAY ==
--- NOTE | ~2020-10-14 | XR_ITS ---
EXAMINATION: XR hand BI arthritis min 3V EXAM DATE: 10/14/2020 10:23 INDICATION: M19.90 - Unspecified osteoarthritis, unspecified site. TECHNIQUE: Right hand frontal, lateral and oblique projections obtained and reviewed. Left hand fron seng, lateral and oblique projections obtained and reviewed. Catchers projection of both hands. There is no prior study for comparison. FINDINGS: Right hand: There is mild polyarticular interphalangeal, mild to moderate 1st carpometacarpal primary osteoarthritis. There are no bony erosions identified. There are no acute fractures identified. Left hand: There is mild polyarticular interphalangeal, moderate 1st carpometacarpal primary osteoart hritis. There are no bony erosions identified. There are no acute fractures identified. IMPRESSION: Bilateral polyarticular osteoarthritis, 1st carpometacarpal joint most affected. Reviewed, dictated and finalized at location A. IMPRESSION: Bilateral polyarticular osteoarthritis, 1st carpometacarpal joint m ost affected.
--- NOTE | ~2020-10-14 | XR_ITS ---
EXAMINATION: XR foot LT standing 2V, XR foot RT standing 2V DATE: 10/14/2020 10:23 INDICATION: Rheumatoid arthritis TECHNIQUE: 1. Standing dorsal plantar and lateral views of the left foot were obtained. 2. Standing dorsal plantar and lateral views of the right foot were obtained. COMPARISON: None. FINDINGS: Normal alignment at both feet. No fractures. Mild polyarticular osteoarthritis characterized by nonun iform joint space narrowing and/or tiny marginal osteophytes at the bilateral calcaneocuboid, talonav icular and multiple bilateral tarsometatarsal, metatarsophalangeal and interphalangeal joints. No ero sions to suggest an inflammatory arthritis. Small enthesopathic ossification at the calcaneal inserti on of the distal left Achilles tendon. No ankle joint effusions. IMPRESSION: 1. Mild polyarticular osteoarthritis throughout both feet. No erosions to suggest an inflammatory art hritis. Reviewed, dictated and finalized at location A. IMPRESSION: 1. Mild polyarticular osteoarthritis throughout both feet. No erosions to sugge st an inflammatory arthritis.
[2020-10-14 10:56] LABS: Add Urine Microscopic? YES; Appearance Urine Cloudy (Clear); Bilirubin Urine Negative (Negative); Blood Urine 2+ (Negative); Color Urine Yellow (Yellow); Glucose Urine UA Negative (Negative); Hematocrit 36.1 % (37.0-47.0); Hemoglobin 11.8 g/dL (12.0-15.0); Ketones Urine Negative (Negative); Leukocyte Esterase Ur 2+ LEU/UL (Negative); Mean Corpuscular HGB Conc 32.7 g/dl (32-36); Mean Corpuscular Hemoglobin 27.5 pg (26-34); Mean Corpuscular Volume 84.1 fl (80-100); Mean Platelet Volume 8.5 fl (7.4-10.4); Nitrate Urine Negative (Negative); Platelet Count Result 206 k/mm3 (150-375); Protein Urine 2+ mg/dL (Negative); RBC Urine >75 /hpf (0-2); Red Blood Count 4.29 M/mm3 (4.2-5.4); Red Cell Distribution Width 16.4 % (11.5-14.5); Specific Grav Ur 1.017 (1.001-1.035); Squamous Epithelial Cell Urine Rare /hpf (Few); Urobilinogen Urine Negative mg/dL (<2.0); WBC Urine >75 /hpf; White Blood Count 7.2 K/mm3 (4.5-10.0)
[2020-10-14 11:04] LABS: Alanine Aminotransferase 19 U/L (4-35); Albumin Level 4.5 g/dL (3.5-5.1); Alkaline Phosphatase 66 U/L (38-126); Anion Gap 8 mmol/L (8-16); Aspartate Amino Transferase 35 U/L (14-36); Bilirubin,Total 0.3 mg/dL (0.2-1.3); Blood Urea Nitrogen 15 mg/dL (7-17); CRP < 0.5 mg/dL (<1.0); Calcium 9.5 mg/dL (8.4-10.2); Carbon Dioxide 28 mmol/L (22-30); Chloride 98 mmol/L (98-107); Estimated Glomerular Filt Rate 54; Glucose 109 mg/dL (65-105); Potassium 4.4 mmol/L (3.4-5.0); Sodium 134 mmol/L (137-145)
[2020-10-14 12:12] LABS: Hepatitis B Surface Antigen Negative (Negative)
[2020-10-14 12:30] LABS: Hepatitis B Surface Anti Res Negative; Hepatitis C Virus Antibody Negative (Negative)
[2020-10-14 13:56] LABS: Erythrocyte Sedimentation Rate 26 mm/hr (0-20)
== END 2020-10-14 09:44 | disposition home or self-care (01) ==
LOC: ANHIMG 09:54
PROVIDERS: PCP Internal Medicine; Visit Provider Internal Medicine
DX: M05.79 Rheumatoid arthritis with rheumatoid factor of multiple sites without organ or systems involvement (principal); M19.90 Unspecified osteoarthritis, unspecified site; M06.9 Rheumatoid arthritis, unspecified; M19.041 Primary osteoarthritis, right hand; M19.042 Primary osteoarthritis, left hand; M19.071 Primary osteoarthritis, right ankle and foot; M19.072 Primary osteoarthritis, left ankle and foot
CPT/HCPCS: 36415; 73130; 73620; 80053; 81001; 82728; 83540; 83550; 85027; 85652; 86140; 86706; 86803; 87077; 87086; 87088; 87186; 87340

== ENCOUNTER 2020-10-14 10:00 | Outpatient (CLI) | payer MEDICARE, OTHER, SELFPAY ==
[2020-10-14 11:38] LABS: Iron 76 ug/dL (37-170)
[2020-10-14 11:47] LABS: Percent Iron Saturation 21 % (20-50)
== END 2020-10-14 10:01 | disposition home or self-care (01) ==
LOC: ANHLAB 10:04
PROVIDERS: PCP Internal Medicine; Visit Provider Internal Medicine
DX: Z86.2 Personal history of diseases of the blood and blood-forming organs and certain disorders involving the immune mechanism (principal); Z85.3 Personal history of malignant neoplasm of breast; Z79.811 Long term (current) use of aromatase inhibitors
CPT/HCPCS: 36415; 82728; 83540; 83550

== ENCOUNTER 2020-10-18 09:48 | Outpatient (CLI) | payer MEDICARE, OTHER, SELFPAY ==
[2020-10-21 12:49] LABS: NIL 0.03 IU/mL; Quantiferon TB Plus, 1T NEGATIVE (NEGATIVE); TB1-NIL 0.03 IU/mL; TB2-NIL 0.04 IU/mL
== END 2020-10-18 09:49 | disposition home or self-care (01) ==
PROVIDERS: PCP Internal Medicine; Visit Provider Internal Medicine
DX: M05.79 Rheumatoid arthritis with rheumatoid factor of multiple sites without organ or systems involvement (principal)
CPT/HCPCS: 36415; 86480

== ENCOUNTER 2020-11-09 13:27 | Outpatient (CLI) | payer MEDICARE, OTHER, SELFPAY ==
--- NOTE | ~2020-11-09 | DEXA_ITS ---
Bone Density Report Name: Joanne Newman Age: 75 Sex: Female Ethnicity: White Date of : 1945 Indication: postmenopausal; height loss; cancer; asthma or emphysema; rheumatoid arthritis; Referring Provider: Joe Azar Study: Bone densitometry was performed. Exam Date: November 09, 2020 Accession number: [id number] Bone Density: Region BMD T-score Z-score Classification Femoral Neck (Left) 0.744 -0.9 1.2 Normal Total Hip (Left) 0.885 -0.5 1.4 Normal World Health Organization criteria for BMD impression classify patients as: Normal (T-score at or above -1.0), Osteopenia (T-score between -1.0 and -2.5), or Osteoporosis (T-score at or below -2.5). 10-year Fracture Risk: FRAX not reported because: All T-scores for Spine Total, Hip Total, Femoral Neck at or above -1.0 Clinical Information Provided by Patient: Has rheumatoid arthritis Has used the following medications: Vitamin D, Calcium Has the following medical conditions: Asthma or Emphysema, Cancer Patient maximum height was 72 Menopause Age: 49 No regular weight bearing exercise Drinks caffeinated beverages Onset of menses at age 11 Number of children 0 Impression: The patient has normal bone mass. Discussion: BONE DENSITY IS ABOVE THE MINIMUM DESIRABLE LEVEL AT ALL SKELETAL SITES TESTED. This patient?s bone mineral density is above the minimum desirable level (T-score -1.0 or better) at all sites measured. The patient should follow a healthful lifestyle (good nutrition with adequate calcium and vitamin D, and appropriate weight-bearing exercise). Follow-Up: Consider repeating this study in 5 years or sooner if there is some new clinical indication. Reported by: JUAN F on 11/09/2020 1:48:00 PM. Reviewed, dictated and finalized at location Jose ROMERO
== END 2020-11-09 13:28 | disposition home or self-care (01) ==
LOC: ANHIMG 13:28
PROVIDERS: PCP Internal Medicine; Visit Provider Internal Medicine
DX: M81.0 Age-related osteoporosis without current pathological fracture (principal)
CPT/HCPCS: 77080

== ENCOUNTER 2020-12-06 10:48 | Outpatient (CLI) | payer MEDICARE, OTHER, SELFPAY ==
[2020-12-06 11:22] LABS: Basophils Percent Auto 0.3 % (0.2-1.2); Eosinophils Absolute Auto 0.2 K/mm3 (0-0.3); Hematocrit 36.4 % (37.0-47.0); Hemoglobin 11.9 g/dL (12.0-15.0); Immature Granulocyte Absolute 0.02 K/mm3 (0.00-0.031); Immature Granulocyte Percent A 0.3 % (0-0.5); Immature Platelet Fraction Pct 2.8 % (0.9-11.2); Lymphocytes Absolute Auto 2.22 K/mm3 (0.9-3.2); Mean Corpuscular HGB Conc 32.7 g/dl (32-36); Mean Corpuscular Hemoglobin 28.3 pg (26-34); Mean Corpuscular Volume 86.7 fl (80-100); Mean Platelet Volume 9.2 fl (7.4-10.4); Monocytes Absolute Auto 0.4 K/mm3 (0.1-0.6); Monocytes Percent Auto 6.9 % (2.6-8.5); Neutrophils Absolute Auto 3.5 K/mm3 (1.3-6.7); Neutrophils Percent Auto 54.5 % (45.5-73.1); Platelet Count Result 202 k/mm3 (150-375); Red Cell Distribution Width 13.7 % (11.5-14.5); White Blood Count 6.4 K/mm3 (4.5-10.0)
[2020-12-06 11:31] LABS: Alanine Aminotransferase 22 U/L (4-35); Albumin Level 4.2 g/dL (3.5-5.1); Alkaline Phosphatase 67 U/L (38-126); Anion Gap 10 mmol/L (8-16); Aspartate Amino Transferase 43 U/L (14-36); Bilirubin,Total 0.2 mg/dL (0.2-1.3); Blood Urea Nitrogen 14 mg/dL (7-17); Carbon Dioxide 23 mmol/L (22-30); Chloride 105 mmol/L (98-107); Cholesterol 161 mg/dL (0-200); Estimated Glomerular Filt Rate 54; Glucose 103 mg/dL (65-105); HDL Direct 53 mg/dL; Potassium 4.7 mmol/L (3.4-5.0); Sodium 138 mmol/L (137-145); Triglycerides 145 mg/dL (<150)
[2020-12-06 11:42] LABS: LDL Cholesterol Direct 72 mg/dL
[2020-12-06 12:01] LABS: Thyroid Stimulating Hormone 0.841 uIU/mL (0.465-4.680)
[2020-12-06 12:38] LABS: Vitamin D 25 Hydroxy 42.9 ng/mL
== END 2020-12-06 10:49 | disposition home or self-care (01) ==
LOC: ANHLAB 11:03
PROVIDERS: PCP Internal Medicine; Visit Provider Clinical Nurse Specialist
DX: E78.5 Hyperlipidemia, unspecified (principal); E87.1 Hypo-osmolality and hyponatremia; M15.9 Polyosteoarthritis, unspecified; E03.9 Hypothyroidism, unspecified
CPT/HCPCS: 36415; 80053; 80061; 82306; 84443; 85025; 85055

== ENCOUNTER 2021-02-06 13:25 | Outpatient (CLI) | payer MEDICARE, OTHER, SELFPAY ==
[2021-02-06 13:47] LABS: Hematocrit 36.9 % (37.0-47.0); Hemoglobin 12.2 g/dL (12.0-15.0)
== END 2021-02-06 13:26 | disposition home or self-care (01) ==
LOC: ANHSURGERY 13:29
PROVIDERS: Anesthesiology; PCP Internal Medicine; Visit Provider Urology
DX: N32.9 Bladder disorder, unspecified (principal); D64.9 Anemia, unspecified; Z01.818 Encounter for other preprocedural examination
CPT/HCPCS: 36415; 85014; 85018; 87077; 87086; 87186

== ENCOUNTER 2021-02-13 01:15 | Day surgery (SDC) | payer MEDICARE, OTHER, SELFPAY ==
[2021-02-03 13:05] VITALS: BMI 29.6
--- NOTE | 2021-02-13 09:05 | WPDANESEPPF ---
Anes - Initial Pre Proc Eval Procedure: Operation Date: 02/13/21 10:30 Proposed Procedures p Cystoscopy, Bladder Biopsy - Zev Samayoa MD Date/Time: 02/13/21 09:05 Surgeon: Zev Samayoa MD Pre Op Diagnosis: Bladder Disorder Patient Data Age: 75 Gender: F Height: 1.75 m Weight: 91 kg Allergies Allergy/AdvReac Type Severity Reaction Status Date / Time povidone-iodine Allergy Mild SKIN RASH Verified 02/03/21 12:51 Home Medications Medication Instructions Recorded Confirmed Type cyclosporine 0.05 % eye drops in a 1 drop EACH EYE Q12H 11/04/19 02/03/21 History dropperette fluticasone propionate 50 1 spray NASAL BID 11/04/19 02/03/21 History mcg/actuation nasal spray,suspension Myrbetriq 25 mg PO QAM 04/15/20 02/03/21 History oxybutynin chloride 10 mg PO QAM 04/15/20 02/03/21 History anastrozole 1 mg tablet 1 mg PO QAM #90 tablet 06/13/20 02/03/21 Rx fluticasone 250 mcg-salmeterol 50 1 inh INHALATION BID #60 ea 06/13/20 02/03/21 Rx mcg/dose blistr powdr for inhalation levothyroxine 112 mcg tablet 112 mcg PO QAM #90 tablet 08/24/20 02/03/21 Rx cetirizine 10 mg tablet 10 mg PO DAILY PRN #90 tablet 09/22/20 02/03/21 Rx hydroxychloroquine 200 mg tablet 200 mg PO DAILY #90 tablet 10/21/20 02/03/21 Rx atorvastatin 10 mg tablet 10 mg PO DAILY #90 tablet 12/05/20 02/03/21 Rx calcium carbonate 650 mg calcium 650 mg PO DAILY 12/15/20 02/03/21 History (1,625 mg) tablet multivitamin 1 tablet PO DAILY 12/15/20 02/03/21 History pilocarpine HCl 5 mg tablet 5 mg PO QID #90 tablet 12/22/20 02/03/21 Rx acetaminophen 1,300 mg PO BID 02/03/21 02/03/21 History albuterol sulfate [ProAir HFA] 2 puff INHALATION BID 02/03/21 02/03/21 History hydrocodone-acetaminophen 1 tab PO HS 02/03/21 02/03/21 History meloxicam 15 mg PO HS PRN 02/03/21 02/03/21 History omeprazole 20 mg PO QAM 02/03/21 02/03/21 History venlafaxine [Effexor XR] 75 mg PO QAM 02/03/21 02/03/21 History lisinopril 10 mg tablet 10 mg PO QAM #30 tablet 02/13/21 Rx Patient hx anesthesia problems: none Family hx anesthesia problems: none PMFSH Past Medical History Medical History Acute hemorrhoid Age-related osteoporosis without current pathological fracture Asthma Breast cancer Status post lumpectomy and radiation and chemotherapy. Now on oral medication. Cataract Chicken pox COPD (chronic obstructive pulmonary disease) Counseling on health promotion and disease prevention Depression Generalized osteoarthritis of multiple sites Heartburn HTN (hypertension) Hypercholesterolemia Hyperlipemia Hypothyroidism Liver disease Lumbar radiculopathy Measles Multiple sclerosis Mumps Osteoarthritis Osteoporosis Overactive bladder Postmenopausal Rheumatoid arthritis with rheumatoid factor of multiple sites without organ or systems involvement (~2016) Thyroid disease Tonsillectomy planned 1957 Surgical History Surgical History H/O bilateral cataract extraction H/O blepharoplasty 1998 H/O breast biopsy Left 1981, right 1979 H/O hand surgery 1999 H/O lumpectomy H/O thyroidectomy 1982 History of back surgery 05/26/2019 History of bladder surgery 2018 History of facelift 2007 History of knee replacement procedure of left knee 2002, 2012 History of knee replacement procedure of right knee 2009 History of tonsillectomy History of total right hip arthroplasty Dr. Shaw 04/27/2020 Hx of cardiac cath Family History Family History Mother Hypertension Father Hypertension Social History Social History Smoking status: Never smoker Alcohol intake: former Alcohol use details: SOCIAL DRINKER Substance use: never Living arrangements: with family Additional living arrangements comments: [facility]
[2021-02-13 09:15] VITALS: BP 126/66; PULSE 79; RESP 16; TEMP 37.4; O2SAT 99
[2021-02-13] MEDS: LACTATED RINGERS 1,000 ML 30 ML IV CONT (09:20)
--- NOTE | 2021-02-13 10:14 | PM.IMHP ---
H&P: HPI History of Present Illness Date/Time: 02/13/21 10:14 This is a 75-year-old female the bladder lesion noted on a previous cystoscopy. She is here today for biopsy Chief Complaint: bladder lesion Review of Systems Review of Systems: All systems reviewed & are unremarkable except as noted in HPI and below [facility] Past Medical History Medical History Acute hemorrhoid Age-related osteoporosis without current pathological fracture Asthma Breast cancer Status post lumpectomy and radiation and chemotherapy. Now on oral medication. Cataract Chicken pox COPD (chronic obstructive pulmonary disease) Counseling on health promotion and disease prevention Depression Generalized osteoarthritis of multiple sites Heartburn HTN (hypertension) Hypercholesterolemia Hyperlipemia Hypothyroidism Liver disease Lumbar radiculopathy Measles Multiple sclerosis Mumps Osteoarthritis Osteoporosis Overactive bladder Postmenopausal Rheumatoid arthritis with rheumatoid factor of multiple sites without organ or systems involvement (~2016) Thyroid disease Tonsillectomy planned 1957 Surgical History Surgical History H/O bilateral cataract extraction H/O blepharoplasty 1998 H/O breast biopsy Left 1981, right 1979 H/O hand surgery 1999 H/O lumpectomy H/O thyroidectomy 1982 History of back surgery 05/26/2019 History of bladder surgery 2018 History of facelift 2007 History of knee replacement procedure of left knee 2002, 2013 History of knee replacement procedure of right knee 2009 History of tonsillectomy History of total right hip arthroplasty Dr. Shaw 04/27/2020 Hx of cardiac cath Family History Family History Mother Hypertension Father Hypertension Social History Social History Smoking status: Never smoker Alcohol intake: former Alcohol use details: SOCIAL DRINKER Substance use: never Living arrangements: with family Additional living arrangements comments: [facility] Gender identity (if verbalized by the patient): Female Spiritual care concerns: No Meds Home Medications and Allergies Home Medications Medication Instructions Recorded Confirmed Type cyclosporine 0.05 % eye drops in a 1 drop EACH EYE Q12H 11/04/19 02/13/21 History dropperette fluticasone propionate 50 1 spray NASAL BID 11/04/19 02/03/21 History mcg/actuation nasal spray,suspension Myrbetriq 25 mg PO QAM 04/15/20 02/03/21 History oxybutynin chloride 10 mg PO QAM 04/15/20 02/03/21 History anastrozole 1 mg tablet 1 mg PO QAM #90 tablet 06/13/20 02/03/21 Rx fluticasone 250 mcg-salmeterol 50 1 inh INHALATION BID #60 ea 06/13/20 02/03/21 Rx mcg/dose blistr powdr for inhalation levothyroxine 112 mcg tablet 112 mcg PO QAM #90 tablet 08/24/20 02/13/21 Rx cetirizine 10 mg tablet 10 mg PO DAILY PRN #90 tablet 09/22/20 02/03/21 Rx hydroxychloroquine 200 mg tablet 200 mg PO DAILY #90 tablet 10/21/20 02/03/21 Rx atorvastatin 10 mg tablet 10 mg PO DAILY #90 tablet 12/05/20 02/03/21 Rx calcium carbonate 650 mg calcium 650 mg PO DAILY 12/15/20 02/03/21 History (1,625 mg) tablet multivitamin 1 tablet PO DAILY 12/15/20 02/13/21 History pilocarpine HCl 5 mg tablet 5 mg PO QID #90 tablet 12/22/20 02/03/21 Rx acetaminophen 1,300 mg PO BID 02/03/21 02/03/21 History albuterol sulfate [ProAir HFA] 2 puff INHALATION BID 02/03/21 02/13/21 History hydrocodone-acetaminophen 1 tab PO HS 02/03/21 02/03/21 History meloxicam 15 mg PO HS PRN 02/03/21 02/03/21 History omeprazole 20 mg PO QAM 02/03/21 02/03/21 History venlafaxine [Effexor XR] 75 mg PO QAM 02/03/21 02/13/21 History lisinopril 10 mg tablet 10 mg PO QAM #30 tablet 02/13/21 Rx Allergies Allergy/AdvReac Type Severity Reaction Status Date / Time
--- NOTE | 2021-02-13 10:16 | WPDHPUPDATE1 ---
History and Physical Update Update Date/Time: 02/13/21 10:16 History and Physical has been reviewed, including an updated exam of the patient. There are NO changes in the patient's condition. Risks, benefits, and alternatives have been discussed and questions answered. Patient agrees to proceed with procedure.
[2021-02-13] MEDS: ceFAZolin 2 GM/D5W 50 ML 2 GM/50 ML BAG IVPB (10:25)
[2021-02-13] MEDS: LIDOCAINE HCL 2% GEL UROJET 10 ML PKG MUCOUS MEM (10:42)
[2021-02-13 10:51] VITALS: BP 111/63; PULSE 78; RESP 16; O2SAT 98
--- NOTE | 2021-02-13 10:51 | P.OP_ITS ---
Procedure Note - Detailed Date of Procedure 02/13/21 Pre-op Diagnosis bladder lesion Post-op Diagnosis same Procedure Performed cystoscopy with bladder biopsy Surgeon Zev Samayoa MD Anesthesia MAC Indications this was a bladder lesion noted during a recent cystoscopy she is here today for biopsy Findings 3 lesions on the back wall of her bladder. Biopsied and fulgurated Description of Procedure she was correctly identified. Informed consent obtained. She from the operating room. She was given mac anesthesia. She was prepped and draped in sterile fashion. She was given appropriate perioperative antibiotics. A time- out performed. Cystoscopy revealed 3 lesions on the back wall of her bladder. all remote from the ureteral orifice. I biopsied these areas. I generously fulgurated them. All fulguration was done remote from the ureteral orifice. There is no bleeding under low insufflation pressures. The bladder was drained. She was awakened transferred to PACU in stable condition. Estimated Blood Loss 1 Drains No Packing No Pathology yes ( Bladder biopsy) Complications No immediate complications Condition stable Disposition PACU
[2021-02-13 11:20] VITALS: BP 120/67; PULSE 78; RESP 16; O2SAT 97
[2021-02-13 11:25] VITALS: BP 111/63; PULSE 78; RESP 16; O2SAT 98
[2021-02-13 11:50] VITALS: BP 133/66; PULSE 70; RESP 16
== END 2021-02-13 12:20 | disposition home or self-care (01) ==
PROVIDERS: PCP Internal Medicine; Visit Provider Urology
PROC: 0TBB8ZX Excision of Bladder, Via Natural or Artificial Opening Endoscopic, Diagnostic (ICD-10-PCS; CPT 52204; principal; 2021-02-13 10:30)
DX: N30.20 Other chronic cystitis without hematuria (principal); J45.909 Unspecified asthma, uncomplicated; Z85.3 Personal history of malignant neoplasm of breast; Z92.3 Personal history of irradiation; Z92.21 Personal history of antineoplastic chemotherapy; F32.9 Major depressive disorder, single episode, unspecified; R12 Heartburn; I10 Essential (primary) hypertension; E78.00 Pure hypercholesterolemia, unspecified; E78.5 Hyperlipidemia, unspecified; K76.9 Liver disease, unspecified; M54.16 Radiculopathy, lumbar region; G35 Multiple sclerosis; M81.0 Age-related osteoporosis without current pathological fracture; M06.9 Rheumatoid arthritis, unspecified; E07.9 Disorder of thyroid, unspecified; E89.0 Postprocedural hypothyroidism; M19.90 Unspecified osteoarthritis, unspecified site; J44.9 Chronic obstructive pulmonary disease, unspecified; Z79.51 Long term (current) use of inhaled steroids
CPT/HCPCS: 52204; 88305; J0690; J1100; J2405; J2704; J3010; J7120

== ENCOUNTER 2021-04-15 09:14 | Outpatient (CLI) | payer MEDICARE, OTHER, SELFPAY ==
--- NOTE | ~2021-04-15 | MM_ITS ---
EXAMINATION: MM screening [facility] BI w michele HISTORY: Screening mammogram TECHNIQUE: Craniocaudal and mediolateral oblique 3-D tomosynthesis images were obtained and synthetic 2-D images were generated. CAD analysis was submitted and interpreted. COMPARISON: 04/13/2020, 03/27/2019, 03/25/2018 BREAST PARENCHYMAL COMPOSITION: There are scattered areas of fibroglandular density. FINDINGS: Stable lumpectomy changes are again noted in the upper outer quadrant right breast. There i s no evidence of suspicious mass, calcification, or architectural distortion to suggest malignancy in either breast. There has been no suspicious interval change. IMPRESSION: 1. No mammographic evidence of malignancy. 2. Recommend routine screening mammography in one year. BI-RADS Category 2: Benign finding(s). Reviewed, dictated and finalized at location A.
== END 2021-04-15 09:15 | disposition home or self-care (01) ==
LOC: ANHIMG 09:17
PROVIDERS: PCP Internal Medicine; Visit Provider Internal Medicine
DX: Z12.31 Encounter for screening mammogram for malignant neoplasm of breast (principal)
CPT/HCPCS: 77063; 77067

== ENCOUNTER 2021-05-03 08:59 | Outpatient (CLI) | payer MEDICARE, OTHER, SELFPAY ==
[2021-05-03 09:52] LABS: Hematocrit 36.4 % (37.0-47.0); Hemoglobin 12.4 g/dL (12.0-15.0); Mean Corpuscular HGB Conc 34.1 g/dl (32-36); Mean Corpuscular Hemoglobin 30.8 pg (26-34); Mean Corpuscular Volume 90.5 fl (80-100); Mean Platelet Volume 8.5 fl (7.4-10.4); Platelet Count Result 243 k/mm3 (150-375); Red Blood Count 4.02 M/mm3 (4.2-5.4); Red Cell Distribution Width 12.6 % (11.5-14.5); White Blood Count 7.1 K/mm3 (4.5-10.0)
[2021-05-03 10:25] LABS: Alanine Aminotransferase 18 U/L (4-35); Albumin Level 4.3 g/dL (3.5-5.1); Alkaline Phosphatase 77 U/L (38-126); Anion Gap 11 mmol/L (8-16); Aspartate Amino Transferase 32 U/L (14-36); Bilirubin,Total 0.5 mg/dL (0.2-1.3); Blood Urea Nitrogen 19 mg/dL (7-17); CRP 0.7 mg/dL (<1.0); Calcium 9.6 mg/dL (8.4-10.2); Carbon Dioxide 25 mmol/L (22-30); Chloride 100 mmol/L (98-107); Estimated Glomerular Filt Rate > 60; Glucose 100 mg/dL (65-110); Potassium 4.8 mmol/L (3.4-5.0); Sodium 136 mmol/L (137-145)
[2021-05-03 10:35] LABS: Erythrocyte Sedimentation Rate 55 mm/hr (0-20)
== END 2021-05-03 09:00 | disposition home or self-care (01) ==
PROVIDERS: PCP Internal Medicine; Visit Provider Internal Medicine
DX: M05.79 Rheumatoid arthritis with rheumatoid factor of multiple sites without organ or systems involvement (principal); M06.9 Rheumatoid arthritis, unspecified; M19.90 Unspecified osteoarthritis, unspecified site
CPT/HCPCS: 36415; 80053; 85027; 85652; 86140

== ENCOUNTER 2021-09-26 08:12 | Outpatient (CLI) | payer MEDICARE, OTHER, SELFPAY ==
[2021-09-26 08:38] LABS: Mean Corpuscular Hemoglobin 30.9 pg (26-34); Mean Corpuscular Volume 88.3 fl (80-100); Mean Platelet Volume 8.7 fl (7.4-10.4); Platelet Count Result 180 k/mm3 (150-375); Red Blood Count 4.53 M/mm3 (4.2-5.4); Red Cell Distribution Width 11.9 % (11.5-14.5); White Blood Count 6.1 K/mm3 (4.5-10.0)
[2021-09-26 09:18] LABS: Alanine Aminotransferase 20 U/L (4-35); Albumin Level 4.6 g/dL (3.5-5.1); Alkaline Phosphatase 70 U/L (38-126); Anion Gap 9 mmol/L (8-16); Aspartate Amino Transferase 39 U/L (14-36); Bilirubin,Total 0.6 mg/dL (0.2-1.3); Blood Urea Nitrogen 13 mg/dL (7-17); CRP < 0.5 mg/dL (<1.0); Calcium 9.1 mg/dL (8.4-10.2); Carbon Dioxide 27 mmol/L (22-30); Chloride 97 mmol/L (98-107); Estimated Glomerular Filt Rate > 60; Glucose 100 mg/dL (65-110); Potassium 4.6 mmol/L (3.4-5.0); Sodium 133 mmol/L (137-145)
[2021-09-26 10:38] LABS: Erythrocyte Sedimentation Rate 22 mm/hr (0-20)
== END 2021-09-26 08:13 | disposition home or self-care (01) ==
LOC: ANHLAB 08:15
PROVIDERS: PCP Internal Medicine; Visit Provider Internal Medicine
DX: M05.79 Rheumatoid arthritis with rheumatoid factor of multiple sites without organ or systems involvement (principal); M19.90 Unspecified osteoarthritis, unspecified site; M06.9 Rheumatoid arthritis, unspecified
CPT/HCPCS: 36415; 80053; 85027; 85652; 86140

== ENCOUNTER 2022-01-01 09:10 | Outpatient (CLI) | payer MEDICARE, OTHER, SELFPAY ==
[2022-01-01 09:54] LABS: Hematocrit 37.7 % (37.0-47.0); Hemoglobin 12.9 g/dL (12.0-15.0); Mean Corpuscular HGB Conc 34.2 g/dl (32-36); Mean Corpuscular Hemoglobin 31.2 pg (26-34); Mean Corpuscular Volume 91.1 fl (80-100); Mean Platelet Volume 8.5 fl (7.4-10.4); Platelet Count Result 172 k/mm3 (150-375); Red Blood Count 4.14 M/mm3 (4.2-5.4); Red Cell Distribution Width 13.2 % (11.5-14.5); White Blood Count 5.7 K/mm3 (4.5-10.0)
[2022-01-01 10:11] LABS: Alanine Aminotransferase 17 U/L (6-35); Albumin Level 4.2 g/dL (3.5-5.1); Alkaline Phosphatase 73 U/L (38-126); Anion Gap 4 mmol/L (8-16); Aspartate Amino Transferase 27 U/L (14-36); Bilirubin,Total 0.5 mg/dL (0.2-1.3); Blood Urea Nitrogen 10 mg/dL (7-17); CRP < 0.5 mg/dL (<1.0); Calcium 9.2 mg/dL (8.4-10.2); Carbon Dioxide 30 mmol/L (22-30); Chloride 99 mmol/L (98-107); Estimated Glomerular Filt Rate > 60; Glucose 94 mg/dL (65-110); Potassium 4.4 mmol/L (3.4-5.0); Sodium 133 mmol/L (137-145)
[2022-01-01 10:44] LABS: Appearance Urine Clear (Clear); Bilirubin Urine Negative (Negative); Color Urine Yellow (Yellow); Glucose Urine UA Negative (Negative); Ketones Urine Negative (Negative); Leukocyte Esterase Ur 1+ LEU/UL (Negative); Nitrate Urine Negative (Negative); Protein Urine Negative (Negative); Urobilinogen Urine 0.2 mg/dL (<2.0); pH Urine 5.5 (5.0-9.0)
[2022-01-01 10:46] LABS: Mucus Urine Rare /lpf; Squamous Epithelial Cell Urine Few /hpf (Few); WBC Clumps Urine Present /HPF; WBC Urine 31-50 /hpf
[2022-01-01 11:02] LABS: Add Urine Microscopic? YES; Blood Urine Trace-Intact (Negative)
[2022-01-01 11:04] LABS: Erythrocyte Sedimentation Rate 27 mm/hr (0-20)
== END 2022-01-01 09:11 | disposition home or self-care (01) ==
PROVIDERS: PCP Internal Medicine; Visit Provider Internal Medicine
DX: C50.919 Malignant neoplasm of unspecified site of unspecified female breast (principal); M05.79 Rheumatoid arthritis with rheumatoid factor of multiple sites without organ or systems involvement; M19.90 Unspecified osteoarthritis, unspecified site
CPT/HCPCS: 36415; 80053; 81001; 85027; 85652; 86140; 87077; 87086; 87186

== ENCOUNTER 2022-01-05 10:01 | Outpatient (CLI) | payer MEDICARE, OTHER, SELFPAY ==
[2022-01-05 10:51] LABS: Cholesterol 188 mg/dL (0-200); HDL Direct 54 mg/dL; Triglycerides 225 mg/dL (<150)
[2022-01-05 11:02] LABS: LDL Cholesterol Direct 90 mg/dL
[2022-01-05 11:22] LABS: Thyroid Stimulating Hormone 0.178 uIU/mL (0.465-4.680)
== END 2022-01-05 10:02 | disposition home or self-care (01) ==
PROVIDERS: PCP Internal Medicine; Visit Provider Clinical Nurse Specialist
DX: E55.9 Vitamin D deficiency, unspecified (principal); E87.1 Hypo-osmolality and hyponatremia; I10 Essential (primary) hypertension; E78.00 Pure hypercholesterolemia, unspecified
CPT/HCPCS: 36415; 80061; 82306; 83930; 84443

== ENCOUNTER 2022-01-26 09:01 | Outpatient (CLI) | payer MEDICARE, OTHER, SELFPAY | END 2022-01-26 09:02 | disposition home or self-care (01) | LOC: ANHAUDIO 09:02 | PROVIDERS: PCP Internal Medicine; Visit Provider Clinical Nurse Specialist | DX: H91.90 Unspecified hearing loss, unspecified ear (principal) | CPT/HCPCS: 99199 ==

== ENCOUNTER 2022-02-19 08:15 | Outpatient (CLI) | payer MEDICARE, OTHER, SELFPAY ==
[2022-02-19 10:17] LABS: Thyroid Stimulating Hormone < 0.015 uIU/mL (0.465-4.680)
== END 2022-02-19 08:16 | disposition home or self-care (01) ==
LOC: ANHLAB 08:18
PROVIDERS: PCP Internal Medicine; Visit Provider Clinical Nurse Specialist
DX: E03.9 Hypothyroidism, unspecified (principal)
CPT/HCPCS: 36415; 84443

== ENCOUNTER 2022-03-06 11:33 | Inpatient (IN) | payer MEDICARE, OTHER, SELFPAY ==
[2022-03-06] VITALS (25 sets, daily range): BP systolic 98–138; BP diastolic 49–86; PULSE 80–118; RESP 16–26; TEMP 36.5–37; O2SAT 85–100; BMI 25.7
--- NOTE | ~2022-03-06 | CT_ITS ---
EXAMINATION: CT abdomen pelvis wo con DATE: 03/06/2022 14:19 INDICATION: Nausea, vomiting, diarrhea TECHNIQUE: Computed tomography (CT) of the abdomen and pelvis was performed without intravenous contr ast. The dose-length product (DLP) was 554.16 mGy-cm. Automated exposure control and iterative recons truction technique were employed. COMPARISON: None FINDINGS: Minimal dependent atelectasis is present in the lung bases. The heart size is normal. There is a small sliding hiatal hernia. Stones are present in the nondistended gallbladder. The liver, spl een, pancreas, and adrenal glands are normal. There is a 2.9 cm cyst of the left kidney upper pole. S treak artifact from a right total hip arthroplasty obscures visualization of the pelvis. There appear s to be diffuse wall thickening of the urinary bladder. Colonic diverticulosis is present without luis felipe dence of diverticulitis. No pathologically enlarged abdominal or pelvic lymph nodes are identified. T he appendix is normal. There is no free intraperitoneal gas or evidence of bowel obstruction. There a re changes of posterior fusion in the lumbar spine from L3 through L5. There is severe lumbar spondyl osis. A small fat-containing umbilical hernia is noted. IMPRESSION: 1. Diffuse wall thickening of the urinary bladder which could reflect cystitis. 2. Cholelithiasis without evidence of cholecystitis. Reviewed, dictated and finalized at location B.
--- NOTE | ~2022-03-06 | US_ITS ---
EXAMINATION: US renal BI DATE: 03/07/2022 10:55 INDICATION: Acute renal injury TECHNIQUE: Multiple ultrasound grayscale images of the kidneys were obtained. COMPARISON: CT dated 03/06/2022 FINDINGS: The right kidney measures 10.2 x 5.2 x 4.9 cm. The left kidney measures 10.9 x 6.0 x 5.1 cm. The kidn eys demonstrate normal echogenicity. 2.9 cm anechoic cyst at the upper pole of the left kidney. 1.5 c m cyst at the lower pole of the left kidney. An additional 1 cm cyst at the upper pole of the right k idney evident on prior CT is not definitively identified on the provided images. There is no hydronep hrosis in either kidney. No stones identified. The bladder is normal. IMPRESSION: 1. Renal cysts, the largest measuring 2.9 cm in the left kidney. No hydronephrosis. Reviewed, dictated and finalized at location A. IMPRESSION: 1. Renal cysts, the largest measuring 2.9 cm in the left kidney. No hydronephr osis.
--- NOTE | 2022-03-06 11:56 | ED.NAVMDI ---
HPI - Nausea/Vomiting/Diarrhea General Chief complaint: Nausea/Vomiting/Diarrhea Stated complaint: diarrhea and vomiting -recent covid Time Seen by Provider: 03/06/22 11:38 History of Present Illness HPI Narrative: 76-year-old female presents to the emergency room today for complaints of nausea, vomiting and diarrhea for the past week. She says that she is not able to eat or drink very much since symptoms started. She denies having any shortness of breath or chest pain. Denies having any abdominal pain. She says that she will have the vomiting and diarrhea several times per day. She is feeling tired and weak. The nurse has done a straight cath to get her urine and it is very cloudy milky looking. Patient denies having any dysuria, suprapubic pain or flank pain. She denies having any fever or chills at home. Denies any cough or congestion or sore throat. Related Data Home Medications Medication Instructions Recorded Confirmed cyclosporine 0.05 % eye drops in a 1 drop ophthalmic (eye) Q12H 11/04/19 03/06/22 dropperette (Restasis) fluticasone propionate 50 1 spray intranasal BID 11/04/19 03/06/22 mcg/actuation nasal spray,suspension mirabegron 25 mg tablet,extended 25 mg PO QAM 04/15/20 01/01/22 release 24 hr (Myrbetriq) oxybutynin chloride 10 mg 10 mg PO QAM 04/15/20 01/01/22 tablet,extended release 24 hr calcium carbonate 650 mg calcium 650 mg PO PRN 12/15/20 03/06/22 (1,625 mg) tablet multivitamin 1 tablet PO DAILY 12/15/20 03/06/22 albuterol sulfate 90 mcg/actuation 2 puff inhalation BID 02/03/21 03/06/22 aerosol inhaler (ProAir HFA) acetaminophen 500 mg tablet 1,000 mg PO TID PRN 01/01/22 01/01/22 triamcinolone acetonide 0.025 % 1 applic topical BID 01/01/22 03/06/22 topical ointment zoledronic acid 5 mg/100 mL in IV 01/01/22 01/01/22 mannitol 5 %-water intravenous piggybck (Reclast) Allergies Allergy/AdvReac Type Severity Reaction Status Date / Time povidone-iodine Allergy Mild SKIN RASH Verified 03/06/22 10:26 Review of Systems Review of Systems: CONSTITUTIONAL: Denies fever, chills, reports fatigue, generalized weakness EYES: Denies visual changes, redness, or discharge. ENT: Denies rhinorrhea, congestion, sore throat, or otalgia. CARDIOVASCULAR: Denies chest pain, palpitations, or edema. RESPIRATORY: Denies cough or dyspnea. GASTROINTESTINAL: as per HPI GENITOURINARY: Denies dysuria or hematuria. SKIN: Denies rash or itching. MUSCULOSKELETAL: Denies back pain, joint pain, or myalgia. NEUROLOGIC: Denies headache, numbness, dizziness PSYCHIATRIC: Denies anxiety or depression. [facility] Past Medical History Medical History Acute hemorrhoid Age-related osteoporosis without current pathological fracture Asthma Breast cancer Status post lumpectomy and radiation and chemotherapy. Now on oral medication. Cataract Chicken pox COPD (chronic obstructive pulmonary disease) Counseling on health promotion and disease prevention Depression Generalized osteoarthritis of multiple sites Heartburn HTN (hypertension) Hypercholesterolemia Hyperlipemia Hypothyroidism Liver disease Lumbar radiculopathy Measles Multiple sclerosis Mumps Osteoporosis Overactive bladder Postmenopausal Rheumatoid arthritis with rheumatoid factor of multiple sites without organ or systems involvement (~2017) Thyroid disease Tonsillectomy planned 1957 Surgical History Surgical History H/O bilateral cataract extraction H/O blepharoplasty 1998 H/O breast biopsy Left 1981, right 1979 H/O hand surgery 1999 H/O lumpectomy H/O thyroidectomy 1983 History of back surgery 05/26/2019 History of bladder surgery 2018 History of facelift 2008 History of knee replacement procedure of left knee 2002, 2013 History of knee replacement procedure of right knee 2009 History of tonsillectomy Histor
[2022-03-06 12:32] LABS: Basophils Percent Auto 0.3 % (0.2-1.2); Eosinophils Absolute Auto 0.1 K/mm3 (0-0.3); Eosinophils Percent Auto 1.2 % (0-4.4); Hematocrit 35.3 % (37.0-47.0); Hemoglobin 11.8 g/dL (12.0-15.0); Immature Granulocyte Absolute 0.02 K/mm3 (0.00-0.031); Immature Granulocyte Percent A 0.3 % (0-0.5); Lymphocytes Absolute Auto 1.54 K/mm3 (0.9-3.2); Lymphocytes Percent Auto 21.2 % (18.3-44.2); Mean Corpuscular HGB Conc 33.4 g/dl (32-36); Mean Corpuscular Hemoglobin 30.4 pg (26-34); Mean Platelet Volume 11.2 fl (7.4-10.4); Monocytes Absolute Auto 0.6 K/mm3 (0.1-0.6); Monocytes Percent Auto 8.5 % (2.6-8.5); Neutrophils Percent Auto 68.5 % (45.5-73.1); Platelet Count Result 162 k/mm3 (150-375); Red Blood Count 3.88 M/mm3 (4.2-5.4); Red Cell Distribution Width 12.2 % (11.5-14.5); White Blood Count 7.3 K/mm3 (4.5-10.0)
[2022-03-06 12:42] LABS: Alanine Aminotransferase 15 U/L (6-35); Albumin Level 4.3 g/dL (3.5-5.1); Alkaline Phosphatase 76 U/L (38-126); Anion Gap 12 mmol/L (8-16); Aspartate Amino Transferase 29 U/L (14-36); Bilirubin,Total 0.6 mg/dL (0.2-1.3); Blood Urea Nitrogen 76 mg/dL (7-17); Calcium 8.9 mg/dL (8.4-10.2); Carbon Dioxide 23 mmol/L (22-30); Chloride 100 mmol/L (98-107); Estimated CRCL calculation 13 ml/min; Estimated Glomerular Filt Rate 12; Glucose 119 mg/dL (65-110); Lipase 157 U/L (23-300); Potassium 4.7 mmol/L (3.4-5.0); Sodium 135 mmol/L (137-145)
[2022-03-06 12:47] LABS: Appearance Urine Turbid (Clear); Bilirubin Urine 1+ (Negative); Blood Urine 3+ (Negative); Color Urine Yellow (Yellow); Glucose Urine UA Negative (Negative); Ketones Urine Trace mg/dL (Negative); Leukocyte Esterase Ur 3+ LEU/UL (Negative); Nitrate Urine Negative (Negative); Protein Urine 3+ mg/dL (Negative); Specific Grav Ur 1.025 (1.001-1.035); Urobilinogen Urine 0.2 mg/dL (<2.0); pH Urine 5.5 (5.0-9.0)
[2022-03-06 13:00] LABS: WBC Urine >75 /hpf
[2022-03-06 13:02] LABS: Add Urine Microscopic? YES
[2022-03-06] MEDS: SODIUM CHLORIDE 0.9% IV 1,000 ML 999 ML IV CONT (13:03)
[2022-03-06 13:20] LABS: Lactic Acid Reflex 1.7 mmol/L (0.7-2.0)
--- NOTE | 2022-03-06 16:26 | PC.NURSE ---
This patient, Joanne Newman, was admitted to Medical Room 346-01. Patient/family oriented to hospital policies and general routines including ID bracelet, bed and alarms, visiting hours, pain management, procedures, bathroom and other care routines, personal items, smoking policy, room service/diet, and visiting hours. Information on how to activate the Rapid Response Team has been discussed. Patient/Family are encouraged to report perceived risks to care and to ask questions if they do not understand what they are told or what they should do.
[2022-03-06] MEDS: SODIUM CHLORIDE 0.9% IV 1,000 ML 125 ML IV CONT (17:01)
--- NOTE | 2022-03-06 20:00 | PM.IMHP ---
H&P: HPI History of Present Illness Date/Time: 03/06/22 20:00 Chief Complaint: Nausea, vomiting, diarrhea. Narrative: This is a pleasant 76-year-old female with history of breast cancer, hypertension, hyperlipidemia, sleep apnea, rheumatoid arthritis, hypothyroidism, and GERD who presented to the emergency department for evaluation of nausea, vomiting, and diarrhea. She is a fair historian and some of the following is supplemented via a review of her electronic medical records. She has not felt well for about a week with generalized malaise, decrease in appetite secondary to ?strange smelling food,? and urinary frequency. The last several days she has developed nausea, vomiting, and diarrhea. She estimates that she had several episodes of emesis the last couple of days and 4 to 5 loose stools a day. She has also noticed urinary frequency and hesitancy as well as some mild low back discomfort. In the ER she was found to have evidence of urinary tract infection as well as an acute kidney injury with a BUN and creatinine of 76 and 3.60 respectively, and she is being admitted in this setting. With further questioning she does endorse a sore throat the last couple of weeks but she has no other complaints. She denies fever, chills, sweats, sinus congestion, cough, shortness of breath, and dysuria. She denies sick contacts. Home COVID test was negative. Review of Systems Review of Systems: Twelve systems were reviewed and are negative except for as per HPI. [facility] Past Medical History Medical History (Updated 03/06/22 @ 21:21 by Liane Chino PA-C) Age-related osteoporosis without current pathological fracture Asthma Breast cancer Status post lumpectomy and radiation and chemotherapy. Now on hormone treatment. Chronic obstructive pulmonary disease Depression Generalized osteoarthritis of multiple sites Hypercholesterolemia Hyperlipemia Hypertension Hypothyroidism Lumbar radiculopathy Osteoporosis Overactive bladder Postmenopausal Rheumatoid arthritis with rheumatoid factor of multiple sites without organ or systems involvement (~2017) Thyroid disease Surgical History Surgical History (Updated 03/06/22 @ 20:38 by Liane Chino PA-C) History of back surgery (2018) History of bilateral cataract extraction History of bilateral knee replacement History of bladder surgery (2017) History of blepharoplasty (1998) History of cardiac catheterization History of facelift (2007) History of lumpectomy of left breast History of thyroidectomy (1982) History of tonsillectomy History of total right hip arthroplasty (04/2020) Family History Family History Mother Hypertension Father Hypertension Social History Social History (Updated 03/06/22 @ 20:39 by Liane Chino PA-C) Social History: Surrogate medical decision maker: Juan J Newman, spouse. Code status: Full code. Smoking status: Never smoker Alcohol intake: former Alcohol use details: Social drinker. Substance use: never Additional living arrangements comments: The patient lives with her in [place]. Spiritual care concerns: No Meds Home Medications and Allergies Home Medications Medication Instructions Recorded Confirmed Type cyclosporine 0.05 % eye drops in a 1 drop ophthalmic (eye) Q12H 11/04/19 03/06/22 History dropperette (Restasis) fluticasone propionate 50 1 spray intranasal BID 11/04/19 03/06/22 History mcg/actuation nasal spray,suspension mirabegron 25 mg tablet,extended 25 mg PO QAM 04/15/20 01/01/22 History release 24 hr (Myrbetriq) oxybutynin chloride 10 mg 10 mg PO QAM 04/15/20 01/01/22 History tablet,extended release 24 hr fluticasone 250 mcg-salmeterol 50 1 inh inhalation BID #60 ea 06/13/20 03/06/22 Rx mcg/dose blistr powdr for inhalation (Advair Diskus) cetirizine 10 mg tablet 10 mg PO DAILY PRN allergy 09/22/20 03/06/22 R
[2022-03-06] MEDS: SODIUM CHLORIDE 0.9% IV 1,000 ML 80 ML IV CONT (23:12)
[2022-03-06 23:43] LABS: SARS-CoV-2 RNA PCR Negative
[2022-03-07] MEDS: MELATONIN 3 MG TABLET 6 MG PO (01:40)
[2022-03-07] MEDS: SODIUM CHLORIDE 0.9% IV 1,000 ML 80 ML IV CONT ×2 (04:20→20:05)
[2022-03-07 05:52] LABS: Hematocrit 29.3 % (37.0-47.0); Hemoglobin 9.5 g/dL (12.0-15.0); Mean Corpuscular HGB Conc 32.4 g/dl (32-36); Mean Corpuscular Hemoglobin 29.9 pg (26-34); Mean Corpuscular Volume 92.1 fl (80-100); Platelet Count Result 112 k/mm3 (150-375); Red Blood Count 3.18 M/mm3 (4.2-5.4); White Blood Count 4.2 K/mm3 (4.5-10.0)
[2022-03-07] MEDS: LEVOTHYROXINE SODIUM 75 MCG TABLET PO (05:54)
[2022-03-07 06:00] VITALS: BP 108/60; PULSE 88; RESP 18; TEMP 36.7; O2SAT 99
[2022-03-07 06:06] LABS: Anion Gap 10 mmol/L (8-16); Blood Urea Nitrogen 62 mg/dL (7-17); Calcium 8.1 mg/dL (8.4-10.2); Carbon Dioxide 18 mmol/L (22-30); Chloride 105 mmol/L (98-107); Estimated CRCL calculation 20 ml/min; Estimated Glomerular Filt Rate 22; Glucose 107 mg/dL (65-110); Magnesium 1.8 mg/dL (1.6-2.3); Potassium 4.1 mmol/L (3.4-5.0); Sodium 133 mmol/L (137-145)
[2022-03-07 07:03] LABS: Thyroid Stimulating Hormone Reflex < 0.015 uIU/mL (0.465-4.68)
[2022-03-07 07:40] LABS: Free T4 Free Thyroxine Reflex 2.71 ng/dL (0.78-2.19)
[2022-03-07] MEDS: HEPARIN SODIUM 5,000 UNITS/ML VIAL 5000 UNITS SUB-Q ×2 (08:07→19:58)
[2022-03-07] MEDS: HYDROCORTISONE 1% 30 GM OINTMENT 1 APPLIC TOPICAL ×2 (08:08→17:26)
[2022-03-07] MEDS: PANTOPRAZOLE 40 MG TABLET PO (08:08)
[2022-03-07] MEDS: cycloSPORINE 0.4 ML OPHTH SOLUTION 1 DROP EACH EYE ×2 (08:08→19:59)
[2022-03-07] MEDS: FLUTICASONE PROPIONATE 0.05% NA SPR 16 GM BTL (*BKC) 1 SPRAY NASAL ×2 (08:08→17:26)
[2022-03-07] MEDS: LEFLUNOMIDE 20 MG TABLET PO (08:08)
[2022-03-07] MEDS: VENLAFAXINE HCL XR 75 MG CAP.ER.24H PO (08:08)
[2022-03-07] MEDS: ANASTROZOLE (*CHEMO) 1 MG TABLET PO (08:08)
[2022-03-07] MEDS: ALBUTEROL SULFATE (*SP) AEROSOL 1 PUFF 2 PUFF INHALATION ×2 (09:49→20:21)
[2022-03-07] MEDS: FLUTICASONE/SALMETEROL 115-21 MCG INHALER 1 PUFF 2 PUFF INHALATION ×2 (09:49→20:21)
[2022-03-07 09:53] VITALS: PULSE 80; RESP 16; O2SAT 92
[2022-03-07 13:47] VITALS: BMI 26.0
[2022-03-07 14:00] VITALS: BP 90/64; PULSE 91; RESP 14; TEMP 36.5; O2SAT 100
--- NOTE | 2022-03-07 14:14 | PCNSR ---
On 03/07/22, the student, Reyna Hurst, provided care and completed [facility] documentation on this patient. I have reviewed the student's documentation and agree with the findings.
--- NOTE | 2022-03-07 16:55 | PM.IMPN ---
Progress Note: A&P Assessment and Plan (1) Acute renal failure: Code(s): N17.9 - Acute kidney failure, unspecified Status: Acute Assessment and Plan: Etiology not entirely clear though there is at least some component of dehydration due to poor oral intake, vomiting, and diarrhea. She is on oxybutynin daily. Bladder scan with no urinary retention. IV fluids started renal ultrasound with no hydronephrosis. Renal function continues to improve with hydration (2) Urinary tract infection: Code(s): N39.0 - Urinary tract infection, site not specified Status: Acute Assessment and Plan: Continue ceftriaxone, pending urine culture. (3) Dehydration: Code(s): E86.0 - Dehydration Status: Acute Assessment and Plan: Continue IV fluid rehydration as above. (4) Hypertension: Code(s): I10 - Essential (primary) hypertension Status: Acute Assessment and Plan: Blood pressures were reviewed and they have been running a bit soft, likely due to dehydration. Hold antihypertensives and monitor. (5) Hypothyroidism: Qualifiers: Hypothyroidism type: unspecified Qualified Code(s): E03.9 - Hypothyroidism, unspecified Code(s): E03.9 - Hypothyroidism, unspecified Status: Chronic Assessment and Plan: Continue levothyroxine TSH low will hold levothyroxine (6) Rheumatoid arthritis: Code(s): M06.9 - Rheumatoid arthritis, unspecified Status: Acute Assessment and Plan: No acute issues. Subjective Date/time seen: 03/07/22 16:55 Interval history: HPI:This is a pleasant 76-year-old female with history of breast cancer, hypertension, hyperlipidemia, sleep apnea, rheumatoid arthritis, hypothyroidism, and GERD who presented to the emergency department for evaluation of nausea, vomiting, and diarrhea. She is a fair historian and some of the following is supplemented via a review of her electronic medical records. She has not felt well for about a week with generalized malaise, decrease in appetite secondary to ?strange smelling food,? and urinary frequency. The last several days she has developed nausea, vomiting, and diarrhea.? She estimates that she had several episodes of emesis the last couple of days and 4 to 5 loose stools a day. She has also noticed urinary frequency and hesitancy as well as some mild low back discomfort. In the ER she was found to have evidence of urinary tract infection as well as an acute kidney injury with a BUN and creatinine of 76 and 3.60 respectively, and she is being admitted in this setting. With further questioning she does endorse a sore throat the last couple of weeks but she has no other complaints. She denies fever, chills, sweats, sinus congestion, cough, shortness of breath, and dysuria. She denies sick contacts. Home COVID test was negative. 03/07/2022 feeling better. Feeling stronger. Renal function improving. She is not being much Review of Systems Review of Systems: All systems reviewed & are unremarkable except as noted in HPI and below Exam Narrative: General: Mildly ill-appearing female sitting up in bed. HEENT: PERRL, EOMI. Sclerae anicteric. Oral mucosa is dry. Oropharynx is erythematous without exudate. Neck: Supple. No lymphadenopathy. Respiratory: Lungs are clear to auscultation bilaterally. Cardiovascular: Regular rate and rhythm with S1-S2. Gastrointestinal: Abdomen is soft and nontender with positive bowel sounds. No CVA tenderness. Skin: Warm and dry. No rash or lesions on limited exam. Extremities: No cyanosis, clubbing, or edema. Radial and pedal pulses intact. Neurological: Alert. Cranial nerves 2-12 are grossly intact. No gross focal deficits to casual conversation. Psychiatric: Pleasant and cooperative with normal mood and affect. Slightly forgetful. Objective Data Vital Signs Vital Signs: Vital Signs - 24 hr 03/06/22 22:00 03/07/22
[2022-03-07] MEDS: OFLOXACIN 0.3% OPHTH SOLN 5 ML BTL 2 DROP RIGHT EYE (19:59)
[2022-03-07 20:24] VITALS: O2SAT 96
[2022-03-07 20:54] VITALS: BP 113/51; PULSE 88; RESP 16; TEMP 36.1; O2SAT 98
[2022-03-08 05:08] VITALS: BP 122/68; PULSE 87; RESP 18; TEMP 36.3; O2SAT 98
[2022-03-08 06:07] LABS: Basophils Percent Auto 0.5 % (0.2-1.2); Eosinophils Absolute Auto 0.1 K/mm3 (0-0.3); Eosinophils Percent Auto 3.7 % (0-4.4); Hematocrit 30.3 % (37.0-47.0); Hemoglobin 9.7 g/dL (12.0-15.0); Lymphocytes Absolute Auto 1.63 K/mm3 (0.9-3.2); Lymphocytes Percent Auto 42.9 % (18.3-44.2); Mean Corpuscular Hemoglobin 29.7 pg (26-34); Mean Corpuscular Volume 92.7 fl (80-100); Mean Platelet Volume 10.8 fl (7.4-10.4); Monocytes Absolute Auto 0.4 K/mm3 (0.1-0.6); Neutrophils Absolute Auto 1.6 K/mm3 (1.3-6.7); Neutrophils Percent Auto 42.9 % (45.5-73.1); Platelet Count Result 124 k/mm3 (150-375); Red Blood Count 3.27 M/mm3 (4.2-5.4); Red Cell Distribution Width 12.2 % (11.5-14.5); White Blood Count 3.8 K/mm3 (4.5-10.0)
[2022-03-08 06:23] LABS: Alanine Aminotransferase 12 U/L (6-35); Albumin Level 3.4 g/dL (3.5-5.1); Alkaline Phosphatase 64 U/L (38-126); Anion Gap 8 mmol/L (8-16); Aspartate Amino Transferase 23 U/L (14-36); Bilirubin,Total 0.2 mg/dL (0.2-1.3); Blood Urea Nitrogen 39 mg/dL (7-17); Calcium 8.1 mg/dL (8.4-10.2); Carbon Dioxide 21 mmol/L (22-30); Chloride 110 mmol/L (98-107); Estimated CRCL calculation 34 ml/min; Estimated Glomerular Filt Rate 40; Glucose 102 mg/dL (65-110); Magnesium 1.8 mg/dL (1.6-2.3); Potassium 3.7 mmol/L (3.4-5.0); Sodium 139 mmol/L (137-145)
[2022-03-08] MEDS: VENLAFAXINE HCL XR 75 MG CAP.ER.24H PO (08:25)
[2022-03-08] MEDS: LEFLUNOMIDE 20 MG TABLET PO (08:25)
[2022-03-08] MEDS: FLUTICASONE PROPIONATE 0.05% NA SPR 16 GM BTL (*BKC) 1 SPRAY NASAL ×2 (08:25→18:18)
[2022-03-08] MEDS: cycloSPORINE 0.4 ML OPHTH SOLUTION 1 DROP EACH EYE ×2 (08:25→20:41)
[2022-03-08] MEDS: PANTOPRAZOLE 40 MG TABLET PO (08:25)
[2022-03-08] MEDS: ANASTROZOLE (*CHEMO) 1 MG TABLET PO (08:25)
[2022-03-08] MEDS: OFLOXACIN 0.3% OPHTH SOLN 5 ML BTL 2 DROP RIGHT EYE ×4 (08:26→20:41)
[2022-03-08] MEDS: FLUTICASONE/SALMETEROL 115-21 MCG INHALER 1 PUFF 2 PUFF INHALATION ×2 (08:26→20:11)
[2022-03-08] MEDS: ALBUTEROL SULFATE (*SP) AEROSOL 1 PUFF 2 PUFF INHALATION (08:26)
[2022-03-08] MEDS: HYDROCORTISONE 1% 30 GM OINTMENT 1 APPLIC TOPICAL ×2 (08:26→18:19)
[2022-03-08] MEDS: HEPARIN SODIUM 5,000 UNITS/ML VIAL 5000 UNITS SUB-Q ×2 (08:27→20:41)
--- NOTE | 2022-03-08 11:29 | PM.IMPN ---
Progress Note: A&P Assessment and Plan (1) Acute renal failure: Code(s): N17.9 - Acute kidney failure, unspecified Status: Acute Assessment and Plan: Etiology not entirely clear though there is at least some component of dehydration due to poor oral intake, vomiting, and diarrhea. She is on oxybutynin daily. Bladder scan with no urinary retention. IV fluids started, renal ultrasound with no hydronephrosis. Renal function continues to improve with hydration. Will stop IV fluids today recheck labs in (2) Urinary tract infection: Code(s): N39.0 - Urinary tract infection, site not specified Status: Acute Assessment and Plan: Continue ceftriaxone, urine culture with E sensitive ceftriaxone change to oral at discharge (3) Dehydration: Code(s): E86.0 - Dehydration Status: Acute Assessment and Plan: Continue IV fluid rehydration as above. encourage oral stop IV fluids today (4) Hypertension: Code(s): I10 - Essential (primary) hypertension Status: Acute Assessment and Plan: Blood pressures were reviewed and they have been running a bit soft, likely due to dehydration. Hold antihypertensives and monitor. (5) Hypothyroidism: Qualifiers: Hypothyroidism type: unspecified Qualified Code(s): E03.9 - Hypothyroidism, unspecified Code(s): E03.9 - Hypothyroidism, unspecified Status: Chronic Assessment and Plan: Continue levothyroxine TSH low will hold levothyroxine recheck TSH 4-6 weeks (6) Rheumatoid arthritis: Code(s): M06.9 - Rheumatoid arthritis, unspecified Status: Acute Assessment and Plan: No acute issues. Plan will order PT OT today ambulate safety assessment for DC home Subjective Date/time seen: 03/08/22 11:30 Interval history: HPI:This is a pleasant 76-year-old female with history of breast cancer, hypertension, hyperlipidemia, sleep apnea, rheumatoid arthritis, hypothyroidism, and GERD who presented to the emergency department for evaluation of nausea, vomiting, and diarrhea. She is a fair historian and some of the following is supplemented via a review of her electronic medical records. She has not felt well for about a week with generalized malaise, decrease in appetite secondary to ?strange smelling food,? and urinary frequency. The last several days she has developed nausea, vomiting, and diarrhea.? She estimates that she had several episodes of emesis the last couple of days and 4 to 5 loose stools a day. She has also noticed urinary frequency and hesitancy as well as some mild low back discomfort. In the ER she was found to have evidence of urinary tract infection as well as an acute kidney injury with a BUN and creatinine of 76 and 3.60 respectively, and she is being admitted in this setting. With further questioning she does endorse a sore throat the last couple of weeks but she has no other complaints. She denies fever, chills, sweats, sinus congestion, cough, shortness of breath, and dysuria. She denies sick contacts. Home COVID test was negative. 03/07/2022 feeling better. Feeling stronger. Renal function improving. She is not being much 03/08/2022 feeling better. Ambulating with standby assistance. Renal function is improving. Denies any new complaints. Review of Systems Review of Systems: All systems reviewed & are unremarkable except as noted in HPI and below Exam Narrative: General: Thin built female sitting up in bed. HEENT: PERRL, EOMI. Sclerae anicteric. Oral mucosa is dry. Oropharynx is erythematous without exudate. Neck: Supple. No lymphadenopathy. Respiratory: Lungs are clear to auscultation bilaterally. Cardiovascular: Regular rate and rhythm with S1-S2. Gastrointestinal: Abdomen is soft and nontender with positive bowel sounds. No CVA tenderness. Skin: Warm and dry. No rash or lesions on limited exam. Extremities: No cyanosis, clubbing,
[2022-03-08 14:00] VITALS: BP 100/59; PULSE 81; RESP 20; TEMP 36.7; O2SAT 97
[2022-03-08 14:20] VITALS: O2SAT 98
[2022-03-08 20:14] VITALS: O2SAT 95
[2022-03-08 20:39] VITALS: BP 131/76; PULSE 81; RESP 16; TEMP 36.6; O2SAT 99
[2022-03-09 04:55] LABS: Basophils Percent Auto 0.5 % (0.2-1.2); Eosinophils Absolute Auto 0.2 K/mm3 (0-0.3); Eosinophils Percent Auto 5.2 % (0-4.4); Hematocrit 28.7 % (37.0-47.0); Hemoglobin 9.3 g/dL (12.0-15.0); Immature Granulocyte Absolute 0.01 K/mm3 (0.00-0.031); Immature Granulocyte Percent A 0.3 % (0-0.5); Lymphocytes Absolute Auto 1.76 K/mm3 (0.9-3.2); Lymphocytes Percent Auto 48.4 % (18.3-44.2); Mean Corpuscular HGB Conc 32.4 g/dl (32-36); Mean Corpuscular Hemoglobin 29.2 pg (26-34); Mean Corpuscular Volume 90.3 fl (80-100); Mean Platelet Volume 10.5 fl (7.4-10.4); Monocytes Absolute Auto 0.4 K/mm3 (0.1-0.6); Monocytes Percent Auto 9.6 % (2.6-8.5); Neutrophils Absolute Auto 1.3 K/mm3 (1.3-6.7); Platelet Count Result 123 k/mm3 (150-375); Red Blood Count 3.18 M/mm3 (4.2-5.4); Red Cell Distribution Width 12.1 % (11.5-14.5); White Blood Count 3.6 K/mm3 (4.5-10.0)
[2022-03-09 05:30] LABS: Alanine Aminotransferase 10 U/L (6-35); Albumin Level 3.1 g/dL (3.5-5.1); Alkaline Phosphatase 58 U/L (38-126); Anion Gap 6 mmol/L (8-16); Aspartate Amino Transferase 25 U/L (14-36); Bilirubin,Total 0.2 mg/dL (0.2-1.3); Blood Urea Nitrogen 26 mg/dL (7-17); Calcium 8.6 mg/dL (8.4-10.2); Carbon Dioxide 22 mmol/L (22-30); Chloride 109 mmol/L (98-107); Estimated CRCL calculation 43 ml/min; Estimated Glomerular Filt Rate 54; Glucose 100 mg/dL (65-110); Magnesium 1.7 mg/dL (1.6-2.3); Potassium 3.9 mmol/L (3.4-5.0); Sodium 137 mmol/L (137-145)
[2022-03-09 06:01] VITALS: BP 140/87; PULSE 92; RESP 16; TEMP 36.1; O2SAT 97
[2022-03-09] MEDS: FLUTICASONE/SALMETEROL 115-21 MCG INHALER 1 PUFF 2 PUFF INHALATION (07:59)
[2022-03-09] MEDS: ALBUTEROL SULFATE (*SP) AEROSOL 1 PUFF 2 PUFF INHALATION (07:59)
[2022-03-09] MEDS: VENLAFAXINE HCL XR 75 MG CAP.ER.24H PO (09:57)
[2022-03-09] MEDS: ANASTROZOLE (*CHEMO) 1 MG TABLET PO (09:57)
[2022-03-09] MEDS: cycloSPORINE 0.4 ML OPHTH SOLUTION 1 DROP EACH EYE (09:58)
[2022-03-09] MEDS: FLUTICASONE PROPIONATE 0.05% NA SPR 16 GM BTL (*BKC) 1 SPRAY NASAL (09:59)
[2022-03-09] MEDS: HYDROCORTISONE 1% 30 GM OINTMENT 1 APPLIC TOPICAL (09:59)
[2022-03-09] MEDS: HEPARIN SODIUM 5,000 UNITS/ML VIAL 5000 UNITS SUB-Q (09:59)
[2022-03-09] MEDS: LEFLUNOMIDE 20 MG TABLET PO (10:00)
[2022-03-09] MEDS: OFLOXACIN 0.3% OPHTH SOLN 5 ML BTL 2 DROP RIGHT EYE (10:00)
[2022-03-09] MEDS: PANTOPRAZOLE 40 MG TABLET PO (10:00)
--- NOTE | 2022-03-09 11:45 | PM.DS ---
DS: Admitting Diagnosis Discharge Date 03/09/2022 Admitting Diagnosis renal failure DS: Discharge Diagnosis Discharge Diagnosis (1) Acute renal failure: Code(s): N17.9 - Acute kidney failure, unspecified Status: Acute (2) Urinary tract infection: Code(s): N39.0 - Urinary tract infection, site not specified Status: Acute (3) Dehydration: Code(s): E86.0 - Dehydration Status: Acute (4) Hypertension: Code(s): I10 - Essential (primary) hypertension Status: Acute (5) Hypothyroidism: Qualifiers: Hypothyroidism type: unspecified Qualified Code(s): E03.9 - Hypothyroidism, unspecified Code(s): E03.9 - Hypothyroidism, unspecified Status: Chronic (6) Rheumatoid arthritis: Code(s): M06.9 - Rheumatoid arthritis, unspecified Status: Acute Assessment and Plan: No acute issues. Plan DS: Summary Hospital Course Reason for hospitalization: This is a pleasant 76-year-old female with history of breast cancer, hypertension, hyperlipidemia, sleep apnea, rheumatoid arthritis, hypothyroidism, and GERD who presented to the emergency department for evaluation of nausea, vomiting, and diarrhea. She is a fair historian and some of the following is supplemented via a review of her electronic medical records. She has not felt well for about a week with generalized malaise, decrease in appetite secondary to ?strange smelling food,? and urinary frequency. The last several days she has developed nausea, vomiting, and diarrhea.? She estimates that she had several episodes of emesis the last couple of days and 4 to 5 loose stools a day. She has also noticed urinary frequency and hesitancy as well as some mild low back discomfort. In the ER she was found to have evidence of urinary tract infection as well as an acute kidney injury with a BUN and creatinine of 76 and 3.60 respectively, and she is being admitted in this setting. With further questioning she does endorse a sore throat the last couple of weeks but she has no other complaints. She denies fever, chills, sweats, sinus congestion, cough, shortness of breath, and dysuria. She denies sick contacts. Home COVID test was negative. Hospital Course: # nausea vomiting diarrhea # GARCIA creatinine of 3.6 on admission. Likely due to dehydration poor p.o. intake nausea vomiting and diarrhea. Bladder scan was done with no retention of urine. Renal ultrasound with no hydronephrosis. Was treated with IV fluids and hydration. Meloxicam and lisinopril was stopped. this was continued to be stopped at discharge as well. GARCIA resolved and back to normal with IV hydration. # UTI: She was also noted to have urinary tract infection which is treated with ceftriaxone. Her urine culture grew E coli which is sensitive to multiple different antibiotics she will be switched to cefdinir at discharge. # dehydration IV hydration # hypothyroidism on levothyroxine at home. TSH was low with high T4. Levothyroxine on hold recheck TSH in 4 weeks. # rheumatoid arthritis resume home medication # DVT prophylaxis heparin subQ # disposition PT OT evaluated during the hospital stay and recommended home health at discharge. This will be arranged for care coordination. Time Spent with Patient Time attestation: Total time spent providing and/or coordinating discharge services: 40 minutes Exam Narrative: General: Thin built female sitting up in bed. HEENT: PERRL, EOMI. Sclerae anicteric. Oral mucosa is dry. Oropharynx is erythematous without exudate. Neck: Supple. No lymphadenopathy. Respiratory: Lungs are clear to auscultation bilaterally. Cardiovascular: Regular rate and rhythm with S1-S2. Gastrointestinal: Abdomen is soft and nontender with positive bowel sounds. No CVA tenderness. Skin: Warm and dry. No rash or lesions on limited exam. Extremities: No cyanosis, clubbing, or edema. Radial and pedal pulses intact. Neuro
== END 2022-03-09 14:30 | disposition home or self-care (01) | DRG 683 ==
LOC: ANHED 12:11 → ANH3MED 15:47
PROVIDERS: Physician Assistant; Admitting Provider Family Medicine; Emergency Provider Nurse Practitioner Family; PCP Internal Medicine; Visit Provider Internal Medicine
DX: N17.9 Acute kidney failure, unspecified (principal); N39.0 Urinary tract infection, site not specified; E86.0 Dehydration; Z20.822 Contact with and (suspected) exposure to COVID-19; Z85.3 Personal history of malignant neoplasm of breast; I10 Essential (primary) hypertension; E78.5 Hyperlipidemia, unspecified; G47.33 Obstructive sleep apnea (adult) (pediatric); M06.9 Rheumatoid arthritis, unspecified; E03.9 Hypothyroidism, unspecified; K21.9 Gastro-esophageal reflux disease without esophagitis; J02.9 Acute pharyngitis, unspecified; B96.20 Unspecified Escherichia coli [E. coli] as the cause of diseases classified elsewhere; M81.0 Age-related osteoporosis without current pathological fracture; J44.9 Chronic obstructive pulmonary disease, unspecified; F32.A Depression, unspecified; M54.16 Radiculopathy, lumbar region; G35 Multiple sclerosis; Z90.89 Acquired absence of other organs; Z98.41 Cataract extraction status, right eye; Z98.42 Cataract extraction status, left eye; Z96.653 Presence of artificial knee joint, bilateral; Z96.641 Presence of right artificial hip joint
CPT/HCPCS: 36415; 74176; 76775; 80048; 80053; 81001; 83605; 83690; 83735; 84439; 84443; 85025; 85027; 87040; 87077; 87086; 87088; 87186; 94640; 96365; 97161; 97165; 99285; A9270; C9803; G0378; J0696; J1644; J7030; U0003; U0005

== ENCOUNTER 2022-03-15 10:21 | Outpatient (CLI) | payer MEDICARE, OTHER, SELFPAY ==
[2022-03-15 19:34] LABS: Alanine Aminotransferase 25 U/L (6-35); Albumin Level 3.8 g/dL (3.5-5.1); Alkaline Phosphatase 67 U/L (38-126); Anion Gap 10 mmol/L (8-16); Aspartate Amino Transferase 48 U/L (14-36); Bilirubin,Total 0.4 mg/dL (0.2-1.3); Blood Urea Nitrogen 13 mg/dL (7-17); Calcium 9.4 mg/dL (8.4-10.2); Carbon Dioxide 24 mmol/L (22-30); Chloride 101 mmol/L (98-107); Estimated Glomerular Filt Rate > 60; Glucose 94 mg/dL (65-110); Potassium 4.4 mmol/L (3.4-5.0); Sodium 135 mmol/L (137-145)
[2022-03-15 19:35] LABS: Basophils Percent Auto 0.4 % (0.2-1.2); Eosinophils Absolute Auto 0.2 K/mm3 (0-0.3); Eosinophils Percent Auto 2.9 % (0-4.4); Hematocrit 33.1 % (37.0-47.0); Immature Granulocyte Absolute 0.01 K/mm3 (0.00-0.031); Immature Granulocyte Percent A 0.2 % (0-0.5); Lymphocytes Absolute Auto 2.28 K/mm3 (0.9-3.2); Lymphocytes Percent Auto 44.4 % (18.3-44.2); Mean Corpuscular HGB Conc 33.2 g/dl (32-36); Mean Corpuscular Hemoglobin 29.7 pg (26-34); Mean Corpuscular Volume 89.5 fl (80-100); Mean Platelet Volume 10.6 fl (7.4-10.4); Monocytes Absolute Auto 0.4 K/mm3 (0.1-0.6); Monocytes Percent Auto 7.2 % (2.6-8.5); Neutrophils Absolute Auto 2.3 K/mm3 (1.3-6.7); Neutrophils Percent Auto 44.9 % (45.5-73.1); Platelet Count Result 162 k/mm3 (150-375); Red Cell Distribution Width 12.7 % (11.5-14.5); White Blood Count 5.1 K/mm3 (4.5-10.0)
[2022-03-15 19:56] LABS: Thyroid Stimulating Hormone < 0.015 uIU/mL (0.465-4.680)
[2022-03-15 20:26] LABS: Free T4 Free Thyroxine 2.63 ng/mL (0.78-2.19)
== END 2022-03-15 10:22 | disposition home or self-care (01) ==
LOC: ANHGOSHLAB 10:25
PROVIDERS: PCP Internal Medicine; Visit Provider Clinical Nurse Specialist
DX: N17.9 Acute kidney failure, unspecified (principal); Z09 Encounter for follow-up examination after completed treatment for conditions other than malignant neoplasm; Z90.09 Acquired absence of other part of head and neck
CPT/HCPCS: 36415; 80053; 84439; 84443; 85025

== ENCOUNTER 2022-05-09 13:41 | Outpatient (CLI) | payer MEDICARE, OTHER, SELFPAY ==
[2022-05-09 13:59] LABS: Basophils Percent Auto 0.4 % (0.2-1.2); Eosinophils Absolute Auto 0.2 K/mm3 (0-0.3); Eosinophils Percent Auto 2.5 % (0-4.4); Hematocrit 37.8 % (37.0-47.0); Hemoglobin 12.7 g/dL (12.0-15.0); Immature Granulocyte Absolute 0.02 K/mm3 (0.00-0.031); Immature Granulocyte Percent A 0.3 % (0-0.5); Lymphocytes Absolute Auto 2.93 K/mm3 (0.9-3.2); Lymphocytes Percent Auto 43.4 % (18.3-44.2); Mean Corpuscular HGB Conc 33.6 g/dl (32-36); Mean Corpuscular Hemoglobin 31.4 pg (26-34); Mean Corpuscular Volume 93.3 fl (80-100); Mean Platelet Volume 9.2 fl (7.4-10.4); Monocytes Absolute Auto 0.5 K/mm3 (0.1-0.6); Monocytes Percent Auto 6.7 % (2.6-8.5); Neutrophils Absolute Auto 3.2 K/mm3 (1.3-6.7); Neutrophils Percent Auto 46.7 % (45.5-73.1); Platelet Count Result 195 k/mm3 (150-375); Red Blood Count 4.05 M/mm3 (4.2-5.4); Red Cell Distribution Width 14.2 % (11.5-14.5); White Blood Count 6.8 K/mm3 (4.5-10.0)
[2022-05-09 14:12] LABS: Anion Gap 14 mmol/L (8-16); Blood Urea Nitrogen 15 mg/dL (7-17); Calcium 9.2 mg/dL (8.4-10.2); Carbon Dioxide 24 mmol/L (22-30); Chloride 101 mmol/L (98-107); Estimated Glomerular Filt Rate > 60; Glucose 95 mg/dL (65-110); Potassium 3.8 mmol/L (3.4-5.0); Sodium 139 mmol/L (137-145)
== END 2022-05-09 13:42 | disposition home or self-care (01) ==
LOC: ANHLAB 13:43
PROVIDERS: PCP Internal Medicine; Visit Provider Clinical Nurse Specialist
DX: N17.9 Acute kidney failure, unspecified (principal); D64.9 Anemia, unspecified
CPT/HCPCS: 36415; 80048; 85025

== ENCOUNTER 2022-06-21 10:32 | Outpatient (CLI) | payer MEDICARE, OTHER, SELFPAY ==
[2022-06-21 13:41] LABS: Free T4 Free Thyroxine 0.69 ng/mL (0.78-2.19)
[2022-06-25 16:09] LABS: Triiodothyronine T3 Free 2.8 pg/mL (2.3-4.2)
== END 2022-06-21 10:33 | disposition home or self-care (01) ==
LOC: ANHWCLAB 10:34
PROVIDERS: PCP Internal Medicine; Visit Provider Internal Medicine Endocrinology, Diabetes & Metabolism
DX: E03.9 Hypothyroidism, unspecified (principal); E04.9 Nontoxic goiter, unspecified
CPT/HCPCS: 36415; 84439; 84443; 84481

== ENCOUNTER 2022-10-15 09:58 | Outpatient (CLI) | payer MEDICARE, OTHER, SELFPAY | END 2022-10-15 09:59 | disposition home or self-care (01) | LOC: ANHAUDIO 09:59 | PROVIDERS: PCP Internal Medicine; Visit Provider Clinical Nurse Specialist | DX: H90.3 Sensorineural hearing loss, bilateral (principal) | CPT/HCPCS: 92557; 92567 ==

== ENCOUNTER 2023-01-03 10:02 | Outpatient (CLI) | payer MEDICARE, OTHER, SELFPAY ==
[2023-01-03 17:29] LABS: Free T4 Free Thyroxine 1.42 ng/mL (0.78-2.19)
[2023-01-03 17:34] LABS: Thyroid Stimulating Hormone 0.783 uIU/mL (0.465-4.680)
== END 2023-01-03 10:03 | disposition home or self-care (01) ==
LOC: ANHWCLAB 10:05
PROVIDERS: PCP Internal Medicine; Visit Provider Internal Medicine Endocrinology, Diabetes & Metabolism
DX: E03.9 Hypothyroidism, unspecified (principal); C73 Malignant neoplasm of thyroid gland
CPT/HCPCS: 36415; 84439; 84443; 86800

== ENCOUNTER 2023-02-18 14:38 | Outpatient (CLI) | payer MEDICARE, OTHER, SELFPAY ==
--- NOTE | ~2023-02-18 | US_ITS ---
EXAMINATION: US thyroid DATE: 02/18/2023 15:40 INDICATION: Thyroid cancer. TECHNIQUE: Multiple ultrasound images of the thyroid were obtained. COMPARISON: None. FINDINGS: The right thyroid lobe is absent. The left thyroid lobe measures 4.3 x 1.5 x 1.2 cm. In the left thy roid lobe, there is a 7 mm solid, very hypoechoic, wider than tall nodule with ill-defined margin wit hout echogenic foci (TI-RADS TR4). There are no enlarged lymph nodes. IMPRESSION: 1. Right hemithyroidectomy. 2. Small thyroid nodule, likely not clinically significant. No follow-up is needed. Reviewed, dictated and finalized at location A. IMPRESSION: 1. Right hemithyroidectomy. 2. Small thyroid nodule, likely not clinically significant. No follow-up is nee ded.
[2023-02-18 16:27] LABS: Basophils Percent Auto 0.6 % (0.2-1.2); Eosinophils Absolute Auto 0.1 K/mm3 (0-0.3); Eosinophils Percent Auto 2.7 % (0-4.4); Hemoglobin 12.7 g/dL (12.0-15.0); Immature Granulocyte Absolute 0.01 K/mm3 (0.00-0.031); Immature Granulocyte Percent A 0.2 % (0-0.5); Lymphocytes Absolute Auto 2.07 K/mm3 (0.9-3.2); Lymphocytes Percent Auto 39.9 % (18.3-44.2); Mean Corpuscular HGB Conc 32.6 g/dl (32-36); Mean Corpuscular Hemoglobin 30.6 pg (26-34); Mean Platelet Volume 9.7 fl (7.4-10.4); Monocytes Absolute Auto 0.4 K/mm3 (0.1-0.6); Monocytes Percent Auto 7.9 % (2.6-8.5); Neutrophils Absolute Auto 2.5 K/mm3 (1.3-6.7); Neutrophils Percent Auto 48.7 % (45.5-73.1); Platelet Count Result 167 k/mm3 (150-375); Red Blood Count 4.15 M/mm3 (4.2-5.4); Red Cell Distribution Width 13.1 % (11.5-14.5); White Blood Count 5.2 K/mm3 (4.5-10.0)
[2023-02-18 16:32] LABS: Appearance Urine Clear (Clear); Bacteria Urine None Seen /hpf; Bilirubin Urine Negative (Negative); Blood Urine Negative (Negative); Color Urine Yellow (Yellow); Glucose Urine UA Negative (Negative); Ketones Urine Trace mg/dL (Negative); Leukocyte Esterase Ur Negative LEU/UL (Negative); Nitrate Urine Negative (Negative); Non Pathogenic Casts 0-2; Protein Urine 1+ mg/dL (Negative); RBC Urine 0-2 /hpf (0-2); Squamous Epithelial Cell Urine Occasional /hpf (Few); WBC Urine 0-5 /hpf
[2023-02-18 16:38] LABS: Add Urine Microscopic? YES
[2023-02-18 17:28] LABS: Alanine Aminotransferase 20 U/L (6-35); Albumin Level 4.4 g/dL (3.5-5.1); Alkaline Phosphatase 59 U/L (38-126); Anion Gap 7 mmol/L (8-16); Aspartate Amino Transferase 30 U/L (14-36); Bilirubin,Total 0.7 mg/dL (0.2-1.3); Blood Urea Nitrogen 20 mg/dL (7-17); Calcium 9.1 mg/dL (8.4-10.2); Carbon Dioxide 29 mmol/L (22-30); Chloride 101 mmol/L (98-107); Estimated Glomerular Filt Rate > 60; Glucose 97 mg/dL (65-110); Potassium 4.1 mmol/L (3.4-5.0); Sodium 137 mmol/L (137-145)
== END 2023-02-18 14:39 | disposition home or self-care (01) ==
PROVIDERS: PCP Internal Medicine; Referring Provider Clinical Nurse Specialist; Visit Provider Internal Medicine Endocrinology, Diabetes & Metabolism
DX: M06.9 Rheumatoid arthritis, unspecified (principal); I10 Essential (primary) hypertension; R41.3 Other amnesia; R29.6 Repeated falls; E89.0 Postprocedural hypothyroidism; Z85.850 Personal history of malignant neoplasm of thyroid; E04.1 Nontoxic single thyroid nodule
CPT/HCPCS: 36415; 76536; 80053; 81001; 82607; 84443; 85025

== ENCOUNTER 2023-02-24 12:22 | Outpatient (CLI) | payer MEDICARE, OTHER, SELFPAY ==
--- NOTE | ~2023-02-24 | MR_ITS ---
EXAMINATION: MR brain/brain stem wo/w con DATE: 02/24/2023 13:34 INDICATION: Other amnesia. TECHNIQUE: Magnetic resonance imaging (MRI) of the brain and brainstem was performed without and with 19 mL MultiHance intravenous contrast. COMPARISON: None. FINDINGS: There are scattered areas of nonspecific increased T2-weighted signal intensity in the cere bral white matter and [place]. There is no intracranial hemorrhage, acute infarction, or abnormal intrac ranial mass lesion. The ventricles are normal in size. There are likely changes of ocular lens replac ement surgeries. The paranasal sinuses are clear. The mastoid air cells are normal. IMPRESSION: 1. Mild nonspecific cerebral white matter disease and pontine disease, which likely represents chroni c small vessel ischemic disease. Reviewed, dictated and finalized at location E. IMPRESSION: 1. Mild nonspecific cerebral white matter disease and pontine disease, which al colby represents chronic small vessel ischemic disease.
== END 2023-02-24 12:23 | disposition home or self-care (01) ==
PROVIDERS: PCP Internal Medicine; Visit Provider Clinical Nurse Specialist
DX: R41.3 Other amnesia (principal); R93.0 Abnormal findings on diagnostic imaging of skull and head, not elsewhere classified
CPT/HCPCS: 70553; A9577

== ENCOUNTER 2023-03-08 08:01 | Outpatient (CLI) | payer MEDICARE, OTHER, SELFPAY ==
[2023-03-08 08:54] LABS: Hematocrit 37.6 % (37.0-47.0); Hemoglobin 12.4 g/dL (12.0-15.0); Mean Corpuscular Hemoglobin 30.7 pg (26-34); Mean Corpuscular Volume 93.1 fl (80-100); Mean Platelet Volume 9.8 fl (7.4-10.4); Platelet Count Result 148 k/mm3 (150-375); Red Blood Count 4.04 M/mm3 (4.2-5.4); Red Cell Distribution Width 12.8 % (11.5-14.5); White Blood Count 4.5 K/mm3 (4.5-10.0)
[2023-03-08 09:08] LABS: Alanine Aminotransferase 19 U/L (6-35); Alkaline Phosphatase 71 U/L (38-126); Anion Gap 4 mmol/L (8-16); Aspartate Amino Transferase 27 U/L (14-36); Bilirubin,Total 0.6 mg/dL (0.2-1.3); Blood Urea Nitrogen 20 mg/dL (7-17); CRP < 0.5 mg/dL (<1.0); Calcium 9.1 mg/dL (8.4-10.2); Carbon Dioxide 26 mmol/L (22-30); Chloride 103 mmol/L (98-107); Estimated Glomerular Filt Rate > 60; Glucose 100 mg/dL (65-110); Sodium 133 mmol/L (137-145)
[2023-03-08 09:26] LABS: Erythrocyte Sedimentation Rate 53 mm/hr (0-20)
== END 2023-03-08 08:02 | disposition home or self-care (01) ==
PROVIDERS: PCP Internal Medicine; Visit Provider Internal Medicine
DX: M05.79 Rheumatoid arthritis with rheumatoid factor of multiple sites without organ or systems involvement (principal); M19.90 Unspecified osteoarthritis, unspecified site; C50.919 Malignant neoplasm of unspecified site of unspecified female breast
CPT/HCPCS: 36415; 80053; 81001; 85027; 85652; 86140; 87077; 87086; 87186

== ENCOUNTER 2023-03-09 10:31 | Outpatient (NON) | payer MEDICARE, OTHER, SELFPAY ==
[2023-03-09 11:20] LABS: Appearance Urine Turbid (Clear); Bacteria Urine 4+ /hpf; Bilirubin Urine Negative (Negative); Blood Urine Trace (Negative); Color Urine Yellow (Yellow); Glucose Urine UA Negative (Negative); Ketones Urine Negative (Negative); Leukocyte Esterase Ur 2+ LEU/UL (Negative); Nitrate Urine Negative (Negative); Non Pathogenic Casts 0-2; Protein Urine Negative (Negative); Specific Grav Ur 1.015 (1.001-1.035); Squamous Epithelial Cell Urine Many /hpf (Few); Urobilinogen Urine 0.2 mg/dL (<2.0); WBC Urine 51-100 /hpf
[2023-03-09 11:22] LABS: Add Urine Microscopic? YES
== END 2023-03-09 10:32 | disposition home or self-care (01) ==
PROVIDERS: PCP Internal Medicine; Visit Provider Internal Medicine
DX: M05.79 Rheumatoid arthritis with rheumatoid factor of multiple sites without organ or systems involvement (principal)
CPT/HCPCS: 81001; 87077; 87086; 87186

== ENCOUNTER 2023-07-11 09:48 | Outpatient (CLI) | payer MEDICARE, OTHER, SELFPAY ==
[2023-07-11 17:24] LABS: Free T4 Free Thyroxine 1.82 ng/mL (0.78-2.19)
== END 2023-07-11 09:49 | disposition home or self-care (01) ==
LOC: ANHWCLAB 09:49
PROVIDERS: PCP Internal Medicine; Visit Provider Internal Medicine Endocrinology, Diabetes & Metabolism
DX: E03.9 Hypothyroidism, unspecified (principal)
CPT/HCPCS: 36415; 84439; 84443

== ENCOUNTER 2023-10-30 12:34 | Outpatient (RCR) | payer MEDICARE, OTHER, SELFPAY ==
[2023-10-30 14:44] VITALS: BMI 25.8
== END 2024-01-02 14:58 | disposition home or self-care (01) ==
LOC: ANHWOC 12:34
PROVIDERS: PCP Internal Medicine; Visit Provider Clinical Nurse Specialist
DX: L89.90 Pressure ulcer of unspecified site, unspecified stage (principal)
CPT/HCPCS: 99214; G0463

== ENCOUNTER 2023-11-06 10:35 | Outpatient (CLI) | payer MEDICARE, OTHER, SELFPAY ==
--- NOTE | ~2023-11-06 | CT_ITS ---
Non-contrast CT scan of the Abdomen and Pelvis Clinical indication: Diarrhea Technique: 2.5 mm axial scans were obtained through the abdomen and pelvis without intravenous or or al contrast. Dose reduction technique was used on this scan by utilizing automated exposure control a nd iterative reconstruction technique. The dose-length product (DLP) was 576.86 mGy-cm. COMPARISON: 03/06/2022 Findings: Images through the lung bases reveal no abnormalities. Renal cysts are present. The liver, spleen, pancreas, kidneys, and adrenals are otherwise appear norm al. Numerous calcified gallstones are present. There are atherosclerotic calcifications of the aorta. There is no evidence of bowel obstruction. Images through the pelvis are degraded by streak artifact from right hip arthroplasty. There is no ev idence of ascites or lymphadenopathy. No gross pelvic mass seen. Urinary bladder grossly unremarkable . There is extensive degenerative spondylosis of the lumbar spine. Impression: No acute abnormality. Cholelithiasis. Reviewed, dictated and finalized at [facility]. Impression: No acute abnormality. Cholelithiasis.
== END 2023-11-06 10:36 ==
LOC: MICIMG 10:40
PROVIDERS: PCP Clinical Nurse Specialist; Visit Provider Clinical Nurse Specialist
DX: R19.7 Diarrhea, unspecified (principal); R63.4 Abnormal weight loss
CPT/HCPCS: 74176

== ENCOUNTER 2023-11-07 10:55 | Outpatient (CLI) | payer MEDICARE, OTHER, SELFPAY ==
[2023-11-07 12:47] LABS: Basophils Percent Auto 0.9 % (0.2-1.2); Eosinophils Absolute Auto 0.1 K/mm3 (0-0.3); Eosinophils Percent Auto 3.2 % (0-4.4); Hematocrit 37.7 % (37.0-47.0); Hemoglobin 12.1 g/dL (12.0-15.0); Immature Granulocyte Absolute 0.01 K/mm3 (0.00-0.031); Immature Granulocyte Percent A 0.2 % (0-0.5); Lymphocytes Absolute Auto 1.42 K/mm3 (0.9-3.2); Lymphocytes Percent Auto 32.1 % (18.3-44.2); Mean Corpuscular HGB Conc 32.1 g/dl (32-36); Mean Corpuscular Hemoglobin 30.5 pg (26-34); Mean Platelet Volume 10.4 fl (7.4-10.4); Monocytes Absolute Auto 0.4 K/mm3 (0.1-0.6); Monocytes Percent Auto 7.9 % (2.6-8.5); Neutrophils Absolute Auto 2.5 K/mm3 (1.3-6.7); Neutrophils Percent Auto 55.7 % (45.5-73.1); Platelet Count Result 195 k/mm3 (150-375); Red Blood Count 3.97 M/mm3 (4.2-5.4); Red Cell Distribution Width 13.4 % (11.5-14.5); White Blood Count 4.4 K/mm3 (4.5-10.0)
[2023-11-07 14:14] LABS: Alanine Aminotransferase 12 U/L (6-35); Albumin Level 3.6 g/dL (3.5-5.1); Alkaline Phosphatase 91 U/L (38-126); Anion Gap 6 mmol/L (4-12); Aspartate Amino Transferase 34 U/L (14-36); Bilirubin,Total 0.8 mg/dL (0.2-1.3); Blood Urea Nitrogen 21 mg/dL (7-17); Calcium 9.4 mg/dL (8.4-10.2); Carbon Dioxide 26 mmol/L (22-30); Chloride 109 mmol/L (98-107); Estimated Glomerular Filt Rate > 60; Glucose 104 mg/dL (65-110); Potassium 3.6 mmol/L (3.4-5.0); Sodium 141 mmol/L (137-145)
[2023-11-07 14:42] LABS: Thyroid Stimulating Hormone 0.199 uIU/mL (0.465-4.680)
== END 2023-11-07 10:56 | disposition home or self-care (01) ==
PROVIDERS: PCP Clinical Nurse Specialist; Visit Provider Clinical Nurse Specialist
DX: R19.7 Diarrhea, unspecified (principal); Z85.850 Personal history of malignant neoplasm of thyroid
CPT/HCPCS: 36415; 80053; 84443; 85025

== ENCOUNTER 2023-11-09 07:49 | Outpatient (NON) | payer MEDICARE, OTHER, SELFPAY | END 2023-11-09 07:50 | disposition home or self-care (01) | LOC: ANHLAB 07:50 | PROVIDERS: PCP Clinical Nurse Specialist; Visit Provider Clinical Nurse Specialist | DX: R19.7 Diarrhea, unspecified (principal) | CPT/HCPCS: 87045; 87177; 87209; 87427; 87449; 87493; 89055 ==

== ENCOUNTER 2024-04-03 10:59 | Outpatient (CLI) | payer MEDICARE, OTHER, SELFPAY ==
[2024-04-03 15:59] LABS: Basophils Percent Auto 0.5 % (0.2-1.2); Eosinophils Absolute Auto 0.1 K/mm3 (0-0.3); Eosinophils Percent Auto 2.3 % (0-4.4); Hematocrit 33.6 % (37.0-47.0); Hemoglobin 10.8 g/dL (12.0-15.0); Immature Granulocyte Absolute 0.01 K/mm3 (0.00-0.031); Immature Granulocyte Percent A 0.2 % (0-0.5); Lymphocytes Absolute Auto 1.58 K/mm3 (0.9-3.2); Lymphocytes Percent Auto 27.5 % (18.3-44.2); Mean Corpuscular HGB Conc 32.1 g/dl (32-36); Mean Corpuscular Hemoglobin 30.8 pg (26-34); Mean Corpuscular Volume 95.7 fl (80-100); Mean Platelet Volume 9.9 fl (7.4-10.4); Monocytes Absolute Auto 0.5 K/mm3 (0.1-0.6); Monocytes Percent Auto 8.3 % (2.6-8.5); Neutrophils Absolute Auto 3.5 K/mm3 (1.3-6.7); Neutrophils Percent Auto 61.2 % (45.5-73.1); Platelet Count Result 218 k/mm3 (150-375); Red Blood Count 3.51 M/mm3 (4.2-5.4); Red Cell Distribution Width 13.9 % (11.5-14.5); White Blood Count 5.8 K/mm3 (4.5-10.0)
[2024-04-03 16:01] LABS: Alanine Aminotransferase 11 U/L (6-35); Albumin Level 3.6 g/dL (3.5-5.1); Alkaline Phosphatase 92 U/L (38-126); Anion Gap 5 mmol/L (4-12); Aspartate Amino Transferase 36 U/L (14-36); Bilirubin,Total 0.4 mg/dL (0.2-1.3); Blood Urea Nitrogen 29 mg/dL (7-17); CRP 0.8 mg/dL (<1.0); Calcium 9.1 mg/dL (8.4-10.2); Carbon Dioxide 30 mmol/L (22-30); Chloride 99 mmol/L (98-107); Estimated Glomerular Filt Rate > 60; Glucose 93 mg/dL (65-110); Potassium 4.2 mmol/L (3.4-5.0); Sodium 134 mmol/L (137-145)
[2024-04-03 16:06] LABS: Free T4 Free Thyroxine 1.18 ng/mL (0.78-2.19)
[2024-04-03 16:55] LABS: Erythrocyte Sedimentation Rate 91 mm/hr (0-20)
[2024-04-03 17:05] LABS: Folic Acid 3.9 ng/mL (2.76->20)
[2024-04-03 18:07] LABS: Hepatitis C Virus Antibody Negative (Negative)
== END 2024-04-03 11:00 | disposition home or self-care (01) ==
LOC: ANHGOSHLAB 11:01
PROVIDERS: PCP Internal Medicine; Visit Provider Clinical Nurse Specialist
DX: D64.9 Anemia, unspecified (principal); I10 Essential (primary) hypertension; R63.4 Abnormal weight loss; E03.9 Hypothyroidism, unspecified; F32.9 Major depressive disorder, single episode, unspecified; C50.919 Malignant neoplasm of unspecified site of unspecified female breast
CPT/HCPCS: 36415; 80053; 82607; 82746; 84439; 84443; 85025; 85652; 86140; 86803

== ENCOUNTER 2024-04-03 11:19 | Outpatient (CLI) | payer MEDICARE, SELFPAY ==
--- NOTE | ~2024-04-03 | XR_ITS ---
Clinical Indication: Weight loss PA and lateral views of the chest: Comparison: 02/24/2020 Findings: The lungs are clear, without evidence of focal consolidation or pleural effusion. Cardiome diastinal silhouette is stable. Bones and soft tissues are unremarkable. Impression: Clear lungs. Reviewed, dictated and finalized at [facility]. Impression: Clear lungs.
== END 2024-04-03 11:20 | disposition home or self-care (01) ==
PROVIDERS: PCP Internal Medicine; Visit Provider Clinical Nurse Specialist
DX: R63.4 Abnormal weight loss (principal)
CPT/HCPCS: 71046